=== PATIENT | male | born 1950 | race Caucasian/White ===

== ENCOUNTER 2018-10-04 10:00 | Observation (INO) | payer MEDICARE, BC ==
[2018-10-04] MEDS ORDERED: Albuterol/Ipratropium 3.0-0.5 MG/3 ML Neb Soln ONE (10:19)
[2018-10-04] MEDS ORDERED: methylPREDNISolone Sodium Succinate 40 MG/1 ML SDV IVPUSH ONE (10:19)
--- NOTE | 2018-10-04 10:37 | EDM.PDOC ---
ED HPI GENERAL MEDICAL PROBLEM - General Chief Complaint: Respiratory Problem Stated Complaint: DIFFICULTY BREATHING Time Seen by Provider: 10/04/18 10:11 Source of Information: Reports: Patient History Limitations: Reports: No Limitations - History of Present Illness INITIAL COMMENTS - FREE TEXT/NARRATIVE: Patient presents with complaints of difficulty breathing and shortness of breath. States this started last night and has progressively worsened. He has history of COPD and has had prior exacerbations in the past. Does have daily spiriva as well as combivent for rescue inhaler. He denies recent fever, chills. Denies dizziness, chest pain, headaches, abdominal pain, no blood in urine or stool, no diarrhea, nausea, or vomiting. Onset Date: 10/03/18 Duration: Getting Worse Associated Symptoms: Reports: Cough, Shortness of Breath. Denies: cough w sputum - Related Data Allergies Allergy/AdvReac Type Severity Reaction Status Date / Time [id number] Reductase Allergy Unknown Liver Verified 10/04/18 10:08 Inhibitor Problems Penicillins Allergy Rash Verified 10/04/18 10:08 Home Meds: Home Meds Albuterol/Ipratropium [Combivent Respimat] 1 puff INH Q6HR PRN 07/12/13 [History ] Tiotropium [Spiriva] 1 puff INH DAILY 07/12/13 [History] Aspirin [Low Dose Aspirin EC] 81 mg PO DAILY 01/26/14 [History] Fish Oil/Gering-3 Fatty Acids [Fish Oil] 1,000 mg PO TID 01/26/14 [History] Cinnamon Bark [Cinnamon] 1 cap PO BID 10/04/18 [History] Ipratropium/Albuterol Sulfate [Iprat-Albut 0.5-3(2.5) mg/3 ml] 3 ml IH Q4HR PRN 10/04/18 [History] Latanoprost 1 drop EYEBOTH BEDTIME 10/04/18 [History] Naproxen Sodium 220 mg PO DAILY PRN 10/04/18 [History] metFORMIN [Glucophage] 500 mg PO BIDMEALS 10/04/18 [History] Social & Family History - Living Situation & Occupation Occupation: Employed ED ROS GENERAL - Review of Systems Review Of Systems: See Below Constitutional: Reports: No Symptoms HEENT: Reports: No Symptoms Respiratory: Reports: Shortness of Breath, Cough Cardiovascular: Reports: No Symptoms Endocrine: Reports: No Symptoms GI/Abdominal: Reports: No Symptoms : Reports: No Symptoms Musculoskeletal: Reports: No Symptoms Skin: Reports: No Symptoms Neurological: Reports: No Symptoms Psychiatric: Reports: No Symptoms Hematologic/Lymphatic: Reports: No Symptoms Immunologic: Reports: No Symptoms ED EXAM, GENERAL - Physical Exam Exam: See Below Exam Limited By: No Limitations General Appearance: Alert, WD/WN, Mild Distress Eye Exam: Bilateral Eye: EOMI, Normal Inspection, PERRL Ears: Normal TMs Ear Exam: Bilateral Ear: Auricle Normal, Canal Normal, TM normal Nose: Normal Inspection, Normal Mucosa, No Blood Throat/Mouth: Normal Inspection, Normal Lips, Normal Teeth, Normal Gums, Normal Oropharynx, Normal Voice, No Airway Compromise Head: Atraumatic, Normocephalic Neck: Normal Inspection, Supple, Non-Tender, Full Range of Motion Respiratory/Chest: Rhonchi, Wheezing Cardiovascular: Normal Peripheral Pulses, Regular Rate, Rhythm, No Edema, No Gallop, No JVD, No Murmur, No Rub GI/Abdominal: Normal Bowel Sounds, Soft, Non-Tender, No Organomegaly, No Distention, No Abnormal Bruit, No Mass Back Exam: Normal Inspection, Full Range of Motion, NT Extremities: Normal Inspection, Normal Range of Motion, Non-Tender, Normal Capillary Refill, No Pedal Edema Neurological: Alert, Oriented, CN II-XII Intact, Normal Cognition, Normal Gait, Normal Reflexes, No Motor/Sensory Deficits Psychiatric: Normal Affect, Normal Mood Skin Exam: Warm, Dry, Intact, Normal Color, No Rash Lymphatic: No Adenopathy Course - Vital Signs Last Recorded V/S: Last Vital Signs Temp 36.8 C 10/04/18 12:31 Pulse 105 H 10/04/18 12:31 Resp 12 10/04/18 12:31 BP 120/80 10/04/18 12:31 Pulse Ox 92 L 10/04/18 12:31 - Orders/Labs/Meds Orders: Active Orders 24 hr Category Date Time Status EKG Documentation Completion [RC] STAT Care 10/04/18 10:19 Active Sodium Chloride 0.9% [Saline Flush] Med 10/04/18 10:19 Active 10 ml FLUSH ASDIRECTED PRN Saline Lock Insert [OM.PC] Routine Oth 10/04/18 10:19 Ordered Medication Orders Sodium Chloride (Saline Flush) 10 ml FLUSH ASDIRECTED PRN PRN Reason: Keep Vein Open Last Admin: 10/04/18 10:40 Dose: 10 ml Labs: Laboratory Tests 10/04/18 10/04/18 10/04/18 Range/Units 10:27 10:27 10:27 WBC 11.4 H (4.0-10.0) x10^3/uL RBC 5.49 (4.5-6.0) x10^6/uL Hgb 16.4 (14.0-18.0) g/dL Hct 47.6 (40.0-52.0) % MCV 86.7 (78.0-93.0) fL MCH 29.9 (26.0-32.0) pg MCHC 34.5 (32.0-36.0) g/dL RDW Coeff of Christine 14.3 (10.0-15.0) % Plt Count 182 (130-400) x10^3/uL Neut % (Auto) 78.6 (50.0-80.0) % Lymph % (Auto) 11.0 L (25.0-50.0) % [place] % (Auto) 6.9 (2.0-11.0) % Eos % (Auto) 3.3 (0.0-4.0) % Baso % (Auto) 0.2 (0.2-1.2) % PT 10.3 (10.0-12.8) SEC INR 0.9 L (2.0-3.5) Sodium 137 (136-145) mmol/L Potassium 4.8 (3.5-5.1) mmol/L Chloride 100 (98-107) mmol/L Carbon Dioxide 29 (21-32) mmol/L Anion Gap 12.8 (10-20) mmol/L BUN 25 H (7-18) mg/dL Creatinine 1.0 (0.70-1.30) mg/dL Est Cr Clr Drug Dosing 73.00 mL/min Estimated GFR (MDRD) > 60 Glucose 224 H (74-106) mg/dL Lactic Acid (0.4-2.0) mmol/L Calcium 10.2 H (8.5-10.1) mg/dL Corrected Calcium 10.28 H (8.5-10.1) mg/dL Total Bilirubin 0.8 (0.2-1.0) mg/dL AST 56 H (15-37) U/L ALT 135 H (16-63) U/L Alkaline Phosphatase 193 H (46-116) U/L Troponin I < 0.017 (<=0.056) ng/mL C-Reactive Protein 1.1 H (<=0.9) mg/dL NT-Pro-B Natriuret Pep 18 (<=125) pg/mL Total Protein 8.6 H (6.4-8.2) g/dL Albumin 3.9 (3.4-5.0) g/dL Globulin 4.7 Albumin/Globulin Ratio 0.83 // Range/Units 10:27 WBC (4.0-10.0) x10^3/uL RBC (4.5-6.0) x10^6/uL Hgb (14.0-18.0) g/dL Hct (40.0-52.0) % MCV (78.0-93.0) fL MCH (26.0-32.0) pg MCHC (32.0-36.0) g/dL RDW Coeff of Christine (10.0-15.0) % Plt Count (130-400) x10^3/uL Neut % (Auto) (50.0-80.0) % Lymph % (Auto) (25.0-50.0) % [place] % (Auto) (2.0-11.0) % Eos % (Auto) (0.0-4.0) % Baso % (Auto) (0.2-1.2) % PT (10.0-12.8) SEC INR (2.0-3.5) Sodium (136-145) mmol/L Potassium (3.5-5.1) mmol/L Chloride (98-107) mmol/L Carbon Dioxide (21-32) mmol/L Anion Gap (10-20) mmol/L BUN (7-18) mg/dL Creatinine (0.70-1.30) mg/dL Est Cr Clr Drug Dosing mL/min Estimated GFR (MDRD) Glucose (74-106) mg/dL Lactic Acid 2.0 (0.4-2.0) mmol/L Calcium (8.5-10.1) mg/dL Corrected Calcium (8.5-10.1) mg/dL Total Bilirubin (0.2-1.0) mg/dL AST (15-37) U/L ALT (16-63) U/L Alkaline Phosphatase (46-116) U/L Troponin I (<=0.056) ng/mL C-Reactive Protein (<=0.9) mg/dL NT-Pro-B Natriuret Pep (<=125) pg/mL Total Protein (6.4-8.2) g/dL Albumin (3.4-5.0) g/dL Globulin Albumin/Globulin Ratio Meds: Medications Generic Name Dose Route Start Last Admin Trade Name Freq PRN Reason Stop Dose Admin Sodium Chloride 10 ml 10/04/18 10:19 10/04/18 10:40 Saline Flush FLUSH 10 ml ASDIRECTED PRN Administration Keep Vein Open Discontinued Medications Generic Name Dose Route Start Last Admin Trade Name Freq PRN Reason Stop Dose Admin Albuterol/Ipratropium Confirm 10/04/18 10:19 10/04/18 10:25 Duoneb 3.0-0.5 Mg/3 Ml Administered 10/04/18 10:20 3 ml Dose Administration 3 ml .ROUTE .STK-MED ONE Methylprednisolone Sodium Succinate 40 mg 10/04/18 10:19 10/04/18 10:40 Solu-Medrol IVPUSH 10/04/18 10:20 40 mg ONETIME ONE Administration Departure - Departure Time of Disposition: 12:20 Disposition: Refer to Observation Condition: Fair Clinical Impression: COPD with exacerbation - Discharge Information *PRESCRIPTION DRUG MONITORING PROGRAM REVIEWED*: Not Applicable *COPY OF PRESCRIPTION DRUG MONITORING REPORT IN PATIENT NEELA: Not Applicable - Problem List & Annotations (1) COPD with exacerbation SNOMED Code(s): 118407766 Code(s): J44.1 - CHRONIC OBSTRUCTIVE PULMONARY DISEASE W (ACUTE) EXACERBATION Status: Acute Priority: Medium Current Visit: Yes - Problem List Review Problem List Initiated/Reviewed/Updated: Yes - My Orders Last 24 Hours: My Active Orders 10/04/18 10:19 EKG Documentation Completion [RC] STAT Sodium Chloride 0.9% [Saline Flush] 10 ml FLUSH ASDIRECTED PRN Saline Lock Insert [OM.PC] Routine - Assessment/Plan Last 24 Hours: My Active Orders 10/04/18 10:19 EKG Documentation Completion [RC] STAT Sodium Chloride 0.9% [Saline Flush] 10 ml FLUSH ASDIRECTED PRN Saline Lock Insert [OM.PC] Routine Assessment:: copd exacerbation Plan: Plan Admit to observation. Administer scheduled solu-medrol, duoneb, place on telemetry, supplemental oxygen. WBC's slightly elevated, no pneumonia on radiologic imaging. Recheck labwork in AM, possible discharge tomorrow. Patient is Code Level I, and remained stable under my care in the ER.
[2018-10-04] MEDS: Sodium Chloride 0.9% 10 ML Syringe FLUSH PRN (10:40)
[2018-10-04 11:11] LABS: CHLORIDE,CL 100 mmol/L (98-107); SODIUM,NA 137 mmol/L (136-145)
[2018-10-04 11:14] LABS: ANION GAP 12.8 mmol/L (10-20)
--- NOTE | 2018-10-04 11:31 | CR ---
[id number] RAD/RAD Chest PA or AP 1V EXAM: SINGLE VIEW CHEST. INDICATION: SHORTNESS OF BREATH COMPARISON: NO PREVIOUS SIMILAR EXAM IS AVAILABLE FINDINGS: There is upper lobe emphysema with crowding of the bronchovascular pattern at the lung bases. The cardiomediastinal contour is mildly prominent. IMPRESSION: AIRWAY DISEASE. Errol Simmons MD 10/04/18 [id number] Thank you for allowing us to participate in the care of your patient.
[2018-10-04] MEDS ORDERED: ALBUTEROL INH PRN (16:35)
[2018-10-04] MEDS ORDERED: IPRATROPIUM INH PRN (16:35)
[2018-10-04] MEDS ORDERED: Albuterol/Ipratropium 3.0-0.5 MG/3 ML Neb Soln INH PRN (16:35)
[2018-10-04] MEDS ORDERED: Albuterol/Ipratropium 3.0-0.5 MG/3 ML Neb Soln NEB PRN (16:38)
[2018-10-04] MEDS ORDERED: Acetaminophen 325 MG Tab PO PRN (16:38)
[2018-10-04] MEDS: methylPREDNISolone Sodium Succinate 40 MG/1 ML SDV IVPUSH SCH (17:08)
[2018-10-04] MEDS: metFORMIN 500 MG Tab PO SCH (17:08)
[2018-10-04] MEDS: Albuterol/Ipratropium 3.0-0.5 MG/3 ML Neb Soln NEB SCH ×2 (18:46→22:40)
[2018-10-04] MEDS: TIOTROPIUM INH SCH (19:32)
[2018-10-04] MEDS ORDERED: LATANOPROST 0.005% EYEBOTH SCH (20:00)
[2018-10-04] MEDS ORDERED: Azithromycin 500 MG in Sodium Chloride 0.9% 250 ML IV SCH (20:00)
[2018-10-05] MEDS: methylPREDNISolone Sodium Succinate 40 MG/1 ML SDV IVPUSH SCH ×2 (00:36→08:28)
[2018-10-05] MEDS: Sodium Chloride 0.9% 10 ML Syringe FLUSH PRN ×2 (00:40→08:28)
[2018-10-05] MEDS: Albuterol/Ipratropium 3.0-0.5 MG/3 ML Neb Soln NEB SCH ×2 (03:24→06:35)
[2018-10-05] MEDS ORDERED: Aspirin 81 MG Tab.EC PO SCH (08:00)
[2018-10-05] MEDS: TIOTROPIUM INH SCH (08:28)
[2018-10-05] MEDS: metFORMIN 500 MG Tab PO SCH (08:28)
[2018-10-05 08:46] LABS: ANION GAP 18.5 mmol/L (10-20)
--- NOTE | 2018-10-05 11:46 | PCM.DCSUM1 ---
Discharge Summary - Hospital Course Free Text/Narrative:: Pt. was admitted for COPD exacerbation yesterday. He was started on IV solu medrol and azithromycin. He states that he is feeling much improved today. He states that he has been up ambulating. Staff states that he has been spending time in the dayroom reading. Denies any significant cough. No fever or chills. No chest pain or shortness of breath. Denies any nausea or vomiting. Diagnosis: Stroke: No - Discharge Data Discharge Date: 10/05/18 Discharge Disposition: Home, Self-Care 01 Condition: Good - Discharge Diagnosis/Problem(s) (1) COPD with exacerbation SNOMED Code(s): 534479630 ICD Code: J44.1 - CHRONIC OBSTRUCTIVE PULMONARY DISEASE W (ACUTE) EXACERBATION Status: Acute Priority: Medium - Patient Instructions Diet: Diabetic Diet - Discharge Plan *PRESCRIPTION DRUG MONITORING PROGRAM REVIEWED*: Not Applicable *COPY OF PRESCRIPTION DRUG MONITORING REPORT IN PATIENT NEELA: Not Applicable Home Medications: Home Meds Albuterol/Ipratropium [Combivent Respimat] 1 puff INH Q6HR PRN 07/12/13 [History ] Tiotropium [Spiriva Handihaler] 1 puff INH DAILY 07/12/13 [History] Aspirin [Low Dose Aspirin EC] 81 mg PO DAILY 01/26/14 [History] Fish Oil/Dragoon-3 Fatty Acids [Fish Oil] 1,000 mg PO TID 01/26/14 [History] Cinnamon Bark [Cinnamon] 1 cap PO BID 10/04/18 [History] Ipratropium/Albuterol Sulfate [Iprat-Albut 0.5-3(2.5) mg/3 ml] 3 ml IH Q4HR PRN 10/04/18 [History] Latanoprost 1 drop EYEBOTH BEDTIME 10/04/18 [History] Naproxen Sodium 220 mg PO DAILY PRN 10/04/18 [History] metFORMIN [Glucophage] 500 mg PO BIDMEALS 10/04/18 [History] Patient Handouts: Chronic Obstructive Pulmonary Disease Exacerbation, Easy-to- Read Forms: ED Department Discharge - Discharge Summary/Plan Comment DC Time >30 min.: Yes Discharge Summary/Plan Comment: Pt. will be discharged today. Continue azithromycin 250mg once daily. Prednisone 40mg once daily. Follow-up in clinic 10-14 days for recheck. - General Info Date of Service: 10/05/18 Functional Status: Reports: Pain Controlled - Review of Systems General: Reports: No Symptoms HEENT: Reports: No Symptoms Pulmonary: Reports: Other (see HPI) Cardiovascular: Reports: No Symptoms Gastrointestinal: Reports: No Symptoms Genitourinary: Reports: No Symptoms Musculoskeletal: Reports: No Symptoms Skin: Reports: No Symptoms Neurological: Reports: No Symptoms Psychiatric: Reports: No Symptoms - Patient Data Vitals - Most Recent: Last Vital Signs Temp 36.9 C 10/05/18 10:00 Pulse 105 H 10/05/18 10:00 Resp 18 10/05/18 10:00 BP 112/69 10/05/18 10:00 Pulse Ox 92 L 10/05/18 10:00 Weight - Most Recent: 74.843 kg I&O - Last 24 hours: Intake & Output 10/04/18 10/05/18 10/05/18 22:59 06:59 14:59 Intake Total 1148 900 540 Output Total 900 750 Balance 248 150 540 Lab Results - Last 24 hrs: Laboratory Results - last 24 hr 10/04/18 10/05/18 10/05/18 Range/Units 21:40 06:48 08:08 WBC 15.3 H (4.0-10.0) x10^3/uL RBC 5.03 (4.5-6.0) x10^6/uL Hgb 14.7 D (14.0-18.0) g/dL Hct 43.6 (40.0-52.0) % MCV 86.7 (78.0-93.0) fL MCH 29.2 (26.0-32.0) pg MCHC 33.7 (32.0-36.0) g/dL RDW Coeff of Christine 14.3 (10.0-15.0) % Plt Count 215 (130-400) x10^3/uL Neut % (Auto) 88.2 H (50.0-80.0) % Lymph % (Auto) 7.7 L (25.0-50.0) % [place] % (Auto) 3.9 (2.0-11.0) % Eos % (Auto) 0.1 (0.0-4.0) % Baso % (Auto) 0.1 L (0.2-1.2) % Sodium (136-145) mmol/L Potassium (3.5-5.1) mmol/L Chloride (98-107) mmol/L Carbon Dioxide (21-32) mmol/L Anion Gap (10-20) mmol/L BUN (7-18) mg/dL Creatinine (0.70-1.30) mg/dL Est Cr Clr Drug Dosing mL/min Estimated GFR (MDRD) Glucose (74-106) mg/dL POC Glucose 353 H 256 H (74-106) mg/dL Calcium (8.5-10.1) mg/dL Magnesium (1.8-2.4) mg/dL 10/05/18 Range/Units 08:08 WBC (4.0-10.0) x10^3/uL RBC (4.5-6.0) x10^6/uL Hgb (14.0-18.0) g/dL Hct (40.0-52.0) % MCV (78.0-93.0) fL MCH (26.0-32.0) pg MCHC (32.0-36.0) g/dL RDW Coeff of Christine (10.0-15.0) % Plt Count (130-400) x10^3/uL Neut % (Auto) (50.0-80.0) % Lymph % (Auto) (25.0-50.0) % [place] % (Auto) (2.0-11.0) % Eos % (Auto) (0.0-4.0) % Baso % (Auto) (0.2-1.2) % Sodium 135 L (136-145) mmol/L Potassium 4.5 (3.5-5.1) mmol/L Chloride 99 (98-107) mmol/L Carbon Dioxide 22 (21-32) mmol/L Anion Gap 18.5 (10-20) mmol/L BUN 30 H (7-18) mg/dL Creatinine 1.4 H (0.70-1.30) mg/dL Est Cr Clr Drug Dosing 52.14 mL/min Estimated GFR (MDRD) 50 Glucose 313 H (74-106) mg/dL POC Glucose (74-106) mg/dL Calcium 9.8 (8.5-10.1) mg/dL Magnesium 1.9 (1.8-2.4) mg/dL GRETA Results - Last 24 hrs: Microbiology 10/04/18 10:59 Influenza Type A Antigen Screen - Final Nasopharyngeal Swab NEGATIVE INFLUENZA A VIRUS AG Influenza Type B Antigen Screen - Final NEGATIVE INFLUENZA B VIRUS AG Med Orders - Current: Current Medications Discontinued Medications Acetaminophen (Tylenol) 650 mg PO Q4H PRN PRN Reason: Pain (Mild 1-3)/fever Albuterol/Ipratropium (Duoneb 3.0-0.5 Mg/3 Ml) Confirm Administered Dose 3 ml .ROUTE .STK-MED ONE Stop: 10/04/18 10:20 Last Admin: 10/04/18 10:25 Dose: 3 ml Albuterol/Ipratropium (Combivent Respimat) 0 gm INH Q6HR PRN PRN Reason: Shortness of Breath Albuterol/Ipratropium (Duoneb 3.0-0.5 Mg/3 Ml) 3 ml NEB Q4H PRN PRN Reason: dyspnea/wheezing Albuterol/Ipratropium (Duoneb 3.0-0.5 Mg/3 Ml) 3 ml NEB Q4HRRT [facility] Last Admin: 10/05/18 06:35 Dose: 3 ml Aspirin (Halfprin) 81 mg PO DAILY [facility] Last Admin: 10/05/18 08:28 Dose: 81 mg Azithromycin 500 mg/ Sodium (Chloride) 250 mls @ 250 mls/hr IV Q24H [facility] Last Admin: 10/04/18 21:33 Dose: 250 mls/hr Latanoprost (Xalatan 0.005% Ophth Soln) 0 ml EYEBOTH BEDTIME [facility] Last Admin: 10/04/18 20:19 Dose: 1 drop Metformin HCl (Glucophage) 500 mg PO BIDMEALS [facility] Last Admin: 10/05/18 08:28 Dose: 500 mg Methylprednisolone Sodium Succinate (Solu-Medrol) 40 mg IVPUSH ONETIME ONE Stop: 10/04/18 10:20 Last Admin: 10/04/18 10:40 Dose: 40 mg Methylprednisolone Sodium Succinate (Solu-Medrol) 40 mg IVPUSH Q8H [facility] Last Admin: 10/05/18 08:28 Dose: 40 mg Own Med ( Tiotropium [Spiriva Handihaler] 1 Puff) 1 puff INH DAILY [facility] Last Admin: 10/05/18 08:28 Dose: 1 puff Sodium Chloride (Saline Flush) 10 ml FLUSH ASDIRECTED PRN PRN Reason: Keep Vein Open Last Admin: 10/05/18 08:28 Dose: 10 ml - Exam General: Reports: Alert, Oriented HEENT: Reports: Pupils Equal, Pupils Reactive, EOMI, Mucous Membr. Moist/[place]rich Neck: Reports: Supple Lungs: Reports: Crackles, Rhonchi Cardiovascular: Reports: Regular Rate, Regular Rhythm GI/Abdominal Exam: Normal Bowel Sounds, Soft, Non-Tender, No Organomegaly, No Distention, No Abnormal Bruit, No Mass, Pelvis Stable (Male) Exam: Deferred Rectal (Males) Exam: Deferred Back Exam: Reports: Normal Inspection, Full Range of Motion Extremities: Normal Inspection, Normal Range of Motion, Non-Tender, No Pedal Edema, Normal Capillary Refill Skin: Reports: Warm, Dry, Intact Neurological: Reports: No New Focal Deficit Psy/Mental Status: Reports: Alert, Normal Affect, Normal Mood
== END 2018-10-05 11:15 | disposition home or self-care (01) ==
LOC: VM.ED 10:00 → VM.MS 12:03
PROVIDERS: ADMIT Nurse Practitioner Family; ATTEND Nurse Practitioner Family
DX: J44.1 Chronic obstructive pulmonary disease with (acute) exacerbation (principal); Z88.8 Allergy status to other drugs, medicaments and biological substances; Z88.0 Allergy status to penicillin; Z79.82 Long term (current) use of aspirin; Z79.84 Long term (current) use of oral hypoglycemic drugs; Z79.899 Other long term (current) drug therapy
CPT/HCPCS: 36415; 71045; 80048; 80053; 82962; 83605; 83735; 83880; 84484; 85025; 85610; 86140; 87804; 87804-59; 93005; 94640; 96365; 96374; 96375; 96376; 99217; 99219; 99284-GF; 99285-25; A9270-GY; G0378; J0456; J2920; J7050; J7620-GY

== ENCOUNTER 2019-03-04 01:39 | Emergency (ER) | payer MEDICARE, BC ==
[2019-03-04] MEDS: Ondansetron 4 MG/2 ML SDV ONE (01:55)
[2019-03-04] MEDS: Ketorolac 30 MG/ML SDV ONE (01:55)
[2019-03-04] MEDS: Sodium Chloride 0.9% 500 ML IV ONE (02:10)
--- NOTE | 2019-03-04 02:14 | EDM.PDOC ---
ED HPI GENERAL MEDICAL PROBLEM - General Chief Complaint: Genitourinary Problem Stated Complaint: flank pain Time Seen by Provider: 03/04/19 01:55 Source of Information: Reports: Patient History Limitations: Reports: No Limitations - History of Present Illness INITIAL COMMENTS - FREE TEXT/NARRATIVE: 68-year-old white male that presents to the ER tonight with sudden onset of right flank pain that started at 9 PM. Patient states that he got up to use restroom and noticed he had blood in his urine. Then the pain went away and reoccurred approximately 30 minutes ago with nausea but no vomiting at that time pain was about a 5 or 6 out of 10. Patient came to the emergency room at that time had 1 episode of vomiting with one episode of hematuria again. Patient states he hadn't same signs and symptoms approximate 6 years ago with a kidney stone that he was able to pass he did not see a urologist and was diagnosed with CAT scan and he has not had one since. Patient denies any other complaints Symptoms at This Time Says He Has Been Feeling Well All Day till Now He Has No Known Renal Issues Does Have a History of Ulcerative Colitis Which Has a Colostomy Bag. 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, Aspirin, NSAIDS Right Flank Pain Score (Numeric/FACES): 5 - Related Data Allergies Allergy/AdvReac Type Severity Reaction Status Date / Time Xxpucnt-[id number]-Xaz Reductase Allergy Unknown Liver Verified 03/04/19 01:40 Inhibitor Problems Penicillins Allergy Rash Verified 03/04/19 01:40 Home Meds: Home Meds Albuterol/Ipratropium [Combivent Respimat] 1 puff INH Q6HR PRN 07/12/13 [History ] Tiotropium [Spiriva Handihaler] 1 puff INH DAILY 07/12/13 [History] Aspirin [Low Dose Aspirin EC] 81 mg PO DAILY 01/26/14 [History] Cinnamon Bark [Cinnamon] 1 cap PO BID 10/04/18 [History] Ipratropium/Albuterol Sulfate [Iprat-Albut 0.5-3(2.5) mg/3 ml] 3 ml IH Q4HR PRN 10/04/18 [History] Latanoprost 1 drop EYEBOTH BEDTIME 10/04/18 [History] Naproxen Sodium 220 mg PO DAILY PRN 10/04/18 [History] metFORMIN [Glucophage] 500 mg PO BIDMEALS 10/04/18 [History] Rosuvastatin Calcium 1 tab PO BEDTIME 03/04/19 [History] Past Medical History HEENT History: Reports: Allergic Rhinitis Cardiovascular History: Reports: High Cholesterol Respiratory History: Reports: COPD, SOB Gastrointestinal History: Reports: Inflammatory Bowel Disease Endocrine/Metabolic History: Reports: Diabetes, Type II, Other (See Below) Other Endocrine/Metabolic History: LU: nonalcoholic steatohepatitis Dermatologic History: Reports: Psoriasis - Infectious Disease History Infectious Disease History: Reports: Chicken Pox - Past Surgical History GI Surgical History: Reports: Other (See Below) Other GI Surgeries/Procedures: ileostomy Social & Family History - Family History Family Medical History: Noncontributory - Tobacco Use Smoking Status *Q: Unknown Ever Smoked - Caffeine Use Caffeine Use: Reports: Coffee, Soda - Living Situation & Occupation Occupation: Employed ED ROS GENERAL - Review of Systems Review Of Systems: See Below Constitutional: Reports: No Symptoms HEENT: Reports: No Symptoms Respiratory: Reports: No Symptoms Cardiovascular: Reports: No Symptoms Endocrine: Reports: No Symptoms GI/Abdominal: Reports: Nausea, Vomiting. Denies: Abdominal Pain, Black Stool, Bloody Stool, Constipation, Decreased Appetite, Hematemesis : Reports: Flank Pain, Hematuria. Denies: Dysuria, Frequency, Urgency, Urinary Retention Musculoskeletal: Reports: No Symptoms Skin: Reports: No Symptoms Neurological: Reports: No Symptoms Psychiatric: Reports: No Symptoms Hematologic/Lymphatic: Reports: No Symptoms ED EXAM, RENAL/ - Physical Exam Exam: See Below Exam Limited By: No Limitations General Appearance: Alert, WD/WN, Other (Patient noted be in mild discomfort) Eye Exam: Bilateral Eye: EOMI, PERRL Nose: Normal Inspection, Normal Mucosa Throat/Mouth: Normal Inspection, Normal Lips, Normal Teeth, Normal Gums, Normal Oropharynx, Normal Voice, No Airway Compromise Respiratory/Chest: No Respiratory Distress, Lungs Clear, Normal Breath Sounds, No Accessory Muscle Use, Chest Non-Tender Cardiovascular: Normal Peripheral Pulses, Regular Rate, Rhythm, No Edema, No Gallop, No JVD GI/Abdominal: Normal Bowel Sounds, Soft, Non-Tender, No Organomegaly, No Distention. No: Guarding, Rigid, Rebound, Tender Back Exam: Normal Inspection, Full Range of Motion. No: CVA Tenderness (L), CVA Tenderness (R) Extremities: Normal Inspection, Normal Range of Motion, Non-Tender, No Pedal Edema Neurological: Alert, Oriented, CN II-XII Intact, Normal Cognition, Normal Gait, Normal Reflexes, No Motor/Sensory Deficits Psychiatric: Normal Affect, Normal Mood Skin Exam: Warm, Dry, Intact, Normal Color, No Rash Course - Vital Signs Text/Narrative:: Urinalysis was checked patient was given 30 mg Toradol IV along with 4 Zofran IV states pain is much better now approximately 2 out of 10 patient given 1 bag of normal saline 500 bolused him 125 an hour Patient at this time is okay with treatment conservatively checking UA we will order labs in the morning along with possible CT scan/ultrasound with primary care provider Rechecked patient states pain is very minimal one out of 10 states feels much better and wants to go home willing to return if anything gets worse Discharged with Lortab one by mouth every 4-6 hours number of 7 Zofran 4 mg 1 by mouth every 4-6 hours number of 30 Last Recorded V/S: Last Vital Signs Temp 37.1 C 03/04/19 06:23 Pulse 74 03/04/19 06:23 Resp 16 03/04/19 06:23 BP 129/72 03/04/19 06:23 Pulse Ox 96 03/04/19 06:23 - Orders/Labs/Meds Orders: Active Orders 24 hr Category Date Time Status HYDROmorphone [Dilaudid] Med 03/04/19 02:54 Active 0.5 - 1 mg IVPUSH Q2H PRN Ondansetron [Zofran] Med 03/04/19 02:55 Active 4 mg IVPUSH ONETIME PRN Sodium Chloride 0.9% [Normal Saline] 1,000 ml Med 03/04/19 06:00 Active IV ASDIRECTED Medication Orders Hydromorphone HCl (Dilaudid) 0.5 - 1 mg IVPUSH Q2H PRN PRN Reason: Pain Last Admin: 03/04/19 03:02 Dose: 0.5 mg Sodium Chloride (Normal Saline) 1,000 mls @ 125 mls/hr IV ASDIRECTED MYRA Last Admin: 03/04/19 05:48 Dose: 125 mls/hr Ondansetron HCl (Zofran) 4 mg IVPUSH ONETIME PRN PRN Reason: Nausea Labs: Laboratory Tests 03/04/19 03/04/19 03/04/19 Range/Units 02:25 06:20 06:20 WBC 10.5 H (4.0-10.0) x10^3/uL RBC 4.69 (4.5-6.0) x10^6/uL Hgb 14.1 (14.0-18.0) g/dL Hct 40.6 (40.0-52.0) % MCV 86.6 (78.0-93.0) fL MCH 30.1 (26.0-32.0) pg MCHC 34.7 (32.0-36.0) g/dL RDW Coeff of Christine 13.3 (10.0-15.0) % Plt Count 160 (130-400) x10^3/uL Neut % (Auto) 81.6 H (50.0-80.0) % Lymph % (Auto) 11.4 L (25.0-50.0) % [place] % (Auto) 5.5 (2.0-11.0) % Eos % (Auto) 1.3 (0.0-4.0) % Baso % (Auto) 0.2 (0.2-1.2) % Sodium 138 (136-145) mmol/L Potassium 4.7 (3.5-5.1) mmol/L Chloride 105 (98-107) mmol/L Carbon Dioxide 24 (21-32) mmol/L Anion Gap 13.7 (10-20) mmol/L BUN 24 H (7-18) mg/dL Creatinine 1.1 (0.70-1.30) mg/dL Est Cr Clr Drug Dosing 65.98 mL/min Estimated GFR (MDRD) > 60 Glucose 130 H (74-106) mg/dL Calcium 8.4 L (8.5-10.1) mg/dL Urine Color Red H (YELLOW) POC Urine Appearance Other H (CLEAR) POC Urine pH 6.0 (5.0-8.0) Ur Specific [place] 1.020 (1.005-1.030) POC Urine Protein 100 H (NEGATIVE) POC Ur Glucose (UA) Negative (NEGATIVE) POC Urine Ketones Negative (NEGATIVE) POC Ur Occult Blood Large H (NEGATIVE) POC Urine Nitrite Negative (NEGATIVE) POC Urine Bilirubin Negative (NEGATIVE) POC Urine Urobilinogen 0.2 (0.2) POC U Leukocyte Esteras Negative (NEGATIVE) Meds: Medications Generic Name Dose Route Start Last Admin Trade Name Freq PRN Reason Stop Dose Admin Hydromorphone HCl 0.5 - 1 mg 03/04/19 02:54 03/04/19 03:02 Dilaudid IVPUSH 0.5 mg Q2H PRN Administration Pain Sodium Chloride 1,000 mls @ 125 mls/hr 03/04/19 06:00 03/04/19 05:48 Normal Saline IV 125 mls/hr ASDIRECTED MYRA Administration Ondansetron HCl 4 mg 03/04/19 02:55 Zofran IVPUSH ONETIME PRN Nausea Discontinued Medications Generic Name Dose Route Start Last Admin Trade Name Freq PRN Reason Stop Dose Admin Sodium Chloride 500 mls @ 500 mls/hr 03/04/19 02:00 03/04/19 02:10 Normal Saline IV 03/04/19 02:59 500 mls/hr ONETIME ONE Administration Ketorolac Tromethamine Confirm 03/04/19 01:57 03/04/19 01:55 Toradol Administered 03/04/19 01:58 30 mg Dose Administration 30 mg .ROUTE .STK-MED ONE Ondansetron HCl Confirm 03/04/19 01:56 03/04/19 01:55 Zofran Administered 03/04/19 01:57 4 mg Dose Administration 4 mg .ROUTE .STK-MED ONE Tamsulosin HCl 0.4 mg 03/04/19 02:28 03/04/19 02:33 Flomax PO 03/04/19 02:29 0.4 mg ONETIME ONE Administration Departure - Departure Time of Disposition: 06:45 Disposition: Home, Self-Care 01 Condition: Good Clinical Impression: Renal colic on right side, Hematuria - Discharge Information *PRESCRIPTION DRUG MONITORING PROGRAM REVIEWED*: No *COPY OF PRESCRIPTION DRUG MONITORING REPORT IN PATIENT NEELA: No Instructions: Kidney Stones Referrals: PCP,None [Primary Care Provider] - Forms: ED Department Discharge Additional Instructions: Take medications as directed return to the emergency room if anything gets worse or changes follow up with your primary care provider in 24-48 hours - Problem List & Annotations (1) Renal colic on right side SNOMED Code(s): 2332335 Code(s): N23 - UNSPECIFIED RENAL COLIC Status: Acute Current Visit: Yes (2) Hematuria SNOMED Code(s): 02295501 Code(s): R31.9 - HEMATURIA, UNSPECIFIED Status: Acute Current Visit: Yes - My Orders Last 24 Hours: My Active Orders 03/04/19 02:54 HYDROmorphone [Dilaudid] 0.5 - 1 mg IVPUSH Q2H PRN 03/04/19 02:55 Ondansetron [Zofran] 4 mg IVPUSH ONETIME PRN 03/04/19 06:00 Sodium Chloride 0.9% [Normal Saline] 1,000 ml IV ASDIRECTED - Assessment/Plan Last 24 Hours: My Active Orders 03/04/19 02:54 HYDROmorphone [Dilaudid] 0.5 - 1 mg IVPUSH Q2H PRN 03/04/19 02:55 Ondansetron [Zofran] 4 mg IVPUSH ONETIME PRN 03/04/19 06:00 Sodium Chloride 0.9% [Normal Saline] 1,000 ml IV ASDIRECTED
[2019-03-04] MEDS: Tamsulosin 0.4 MG Cap.ER PO ONE (02:33)
[2019-03-04] MEDS ORDERED: Ondansetron 4 MG/2 ML SDV IVPUSH PRN (02:55)
[2019-03-04] MEDS: HYDROmorphone 1 MG/ML Syringe IVPUSH PRN (03:02)
[2019-03-04] MEDS: Sodium Chloride 0.9% 1,000 ML IV SCH (05:48)
[2019-03-04 06:41] LABS: ANION GAP 13.7 mmol/L (10-20); CHLORIDE,CL 105 mmol/L (98-107); SODIUM,NA 138 mmol/L (136-145)
== END 2019-03-04 07:15 | disposition home or self-care (01) ==
LOC: VM.ED 01:39
DX: N23 Unspecified renal colic (principal); R31.9 Hematuria, unspecified; E78.00 Pure hypercholesterolemia, unspecified; E11.9 Type 2 diabetes mellitus without complications; J44.9 Chronic obstructive pulmonary disease, unspecified; Z88.0 Allergy status to penicillin; Z88.8 Allergy status to other drugs, medicaments and biological substances; Z79.82 Long term (current) use of aspirin; Z79.84 Long term (current) use of oral hypoglycemic drugs; Z79.899 Other long term (current) drug therapy
CPT/HCPCS: 36415; 80048; 81002; 85025; 96361; 96374; 96375; 99284-25; A9270-GY; J1170; J1885; J2405; J7030; J7040

== ENCOUNTER 2019-12-20 09:43 | Emergency (ER) | payer MEDICARE, BC ==
--- NOTE | 2019-12-20 10:07 | EDM.PDOC ---
ED HPI GENERAL MEDICAL PROBLEM - General Chief Complaint: Laceration Stated Complaint: cut on arm Time Seen by Provider: 12/20/19 09:43 Source of Information: Reports: Patient History Limitations: Reports: No Limitations - History of Present Illness INITIAL COMMENTS - FREE TEXT/NARRATIVE: Patient presents to ER with a laceration to his left arm. Was trimming trees and slipped with the knife. Has good range of motion with his wrist and fingers. Tdap status current. 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) - Related Data Allergies Allergy/AdvReac Type Severity Reaction Status Date / Time azathioprine Allergy Confusion Verified 12/20/19 09:56 Penicillins Allergy Rash Verified 12/20/19 09:56 Eyhaczz-Gth-Hck Reductase AdvReac Unknown Liver Verified 12/20/19 09:56 Inhibitor Problems Home Meds: Home Meds Albuterol/Ipratropium [Combivent Respimat] 1 puff INH Q6HR PRN 07/12/13 [History] Tiotropium [Spiriva Handihaler] 18 mcg INH DAILY 07/12/13 [History] Aspirin [Low Dose Aspirin EC] 81 mg PO DAILY 01/26/14 [History] Cinnamon Bark [Cinnamon] 500 mg PO BID 10/04/18 [History] Latanoprost 1 drop EYEBOTH BEDTIME 10/04/18 [History] Naproxen Sodium 220 mg PO DAILY PRN 10/04/18 [History] metFORMIN [Glucophage] 500 mg PO BIDMEALS 10/04/18 [History] Rosuvastatin Calcium 10 mg PO BEDTIME 03/04/19 [History] Furosemide [Lasix] 20 mg PO DAILY 06/02/19 [History] Past Medical History HEENT History: Reports: Allergic Rhinitis Cardiovascular History: Reports: High Cholesterol Respiratory History: Reports: COPD, SOB Gastrointestinal History: Reports: Inflammatory Bowel Disease Endocrine/Metabolic History: Reports: Diabetes, Type II, Other (See Below) Other Endocrine/Metabolic History: LU: nonalcoholic steatohepatitis Dermatologic History: Reports: Psoriasis - Infectious Disease History Infectious Disease History: Reports: Chicken Pox - Past Surgical History GI Surgical History: Reports: Other (See Below) Other GI Surgeries/Procedures: ileostomy Social & Family History - Family History Family Medical History: Noncontributory - Tobacco Use Tobacco Use Within Last Twelve Months: Snuff/Dip - Caffeine Use Caffeine Use: Reports: Coffee, Soda - Living Situation & Occupation Occupation: Employed ED ROS GENERAL - Review of Systems Review Of Systems: Comprehensive ROS is negative, except as noted in HPI. ED EXAM, SKIN/RASH Exam: See Below Exam Limited By: No Limitations General Appearance: Alert, WD/WN, No Apparent Distress Extremities: Normal Range of Motion, Normal Capillary Refill Neurological: Alert, Oriented Skin: Warm, Normal Color, Wound/Incision Location, Skin: Upper Extremity, Left Characteristics: Linear ED SKIN PROCEDURES - Laceration/Wound Repair Left Arm Appearance: Subcutaneous Distal NVT: Neuro & Vascular Intact Anesthetic Type: Local Local Anesthesia - Lidocaine (Xylocaine): 1% Plain Local Anesthetic Volume: 4cc Skin Prep: Chlorhexidine (Hibiciens), Saline Exploration/Debridement/Repair: Wound Explored, In a Bloodless Field, Explored to Base Closed with: Sutures Lac/Wound length In cm: 3 Suture Size: 4-0 # of Sutures: 7 Suture Type: Nylon, Interrupted, Simple Sterile Dressing Applied: Nurse Tetanus Status Addressed: Yes Complications: No Course - Orders/Labs/Meds Meds: Medications Discontinued Medications Generic Name Dose Route Start Last Admin Trade Name Nona PRN Reason Stop Dose Admin Lidocaine HCl 5 ml 12/20/19 09:46 Xylocaine-Mpf 1% INJECT 12/20/19 09:47 ONETIME ONE Departure - Departure Time of Disposition: 10:05 Disposition: Home, Self-Care 01 Condition: Good Clinical Impression: Broken skin Laceration of arm Qualifiers: Encounter type: initial encounter Laterality: left Qualified Code(s): S41.112A - Laceration without foreign body of left upper arm, initial encounter - Discharge Information *PRESCRIPTION DRUG MONITORING PROGRAM REVIEWED*: No *COPY OF PRESCRIPTION DRUG MONITORING REPORT IN PATIENT NEELA: No Instructions: Sutured Wound Care Referrals: Nery Cornelius DO [Primary Care Provider] - Forms: ED Department Discharge Additional Instructions: 1. Keep wound clean and dry 2. Triple antibiotic and bandage for 3 days and then as needed 3. Monitor for increased redness, drainage or pain. Notify provider if occurs 4. Sutures out in 10 days 5. Follow up if any concerns or questions.
== END 2019-12-20 10:15 | disposition home or self-care (01) ==
LOC: VM.ED 09:43
DX: S41.112A Laceration without foreign body of left upper arm, initial encounter (principal); J44.9 Chronic obstructive pulmonary disease, unspecified; E78.00 Pure hypercholesterolemia, unspecified; E11.9 Type 2 diabetes mellitus without complications; Z88.1 Allergy status to other antibiotic agents; Z88.0 Allergy status to penicillin; Z88.8 Allergy status to other drugs, medicaments and biological substances; Z79.82 Long term (current) use of aspirin; Z79.84 Long term (current) use of oral hypoglycemic drugs; Z79.899 Other long term (current) drug therapy; W26.0XXA Contact with knife, initial encounter
CPT/HCPCS: 12002; 99282; 99283-GF; J2001

== ENCOUNTER 2020-01-16 11:28 | Emergency (ER) | payer MEDICARE, BC ==
--- NOTE | 2020-01-16 11:41 | EDM.PDOC ---
ED HPI GENERAL MEDICAL PROBLEM - General Chief Complaint: Upper Extremity Injury/Pain Stated Complaint: RT ARM Time Seen by Provider: 01/16/20 11:35 Source of Information: Reports: Patient History Limitations: Reports: No Limitations - History of Present Illness INITIAL COMMENTS - FREE TEXT/NARRATIVE: Patient presents to ER with concerns of right arm swelling. Had a melanoma e xcised on Saturday at the [facility]. Incision was looking good, oozing small amount of blood. Last evening he noted more swelling and bruising in the right arm. He denies any pain. Has not noted any other drainage from the wound other than blood. No increased warmth or redness per patient. This am, states bruising is now down to his hand. Did ice last evening and did not feel it helped. [facility]. Onset: Gradual Duration: Hour(s):, Getting Worse Location: Reports: Upper Extremity, Right Quality: Reports: Ache Severity: Mild Associated Symptoms: Reports: No Other Symptoms - Related Data Allergies Allergy/AdvReac Type Severity Reaction Status Date / Time azathioprine Allergy Confusion Verified 01/16/20 11:39 Penicillins Allergy Rash Verified 01/16/20 11:39 Chybuwo-Laz-Aoo Reductase AdvReac Unknown Liver Verified 01/16/20 11:39 Inhibitor Problems Home Meds: Home Meds Albuterol/Ipratropium [Combivent Respimat] 1 puff INH Q6HR PRN 07/12/13 [History] Tiotropium [Spiriva Handihaler] 18 mcg INH DAILY 07/12/13 [History] Aspirin [Low Dose Aspirin EC] 81 mg PO DAILY 01/26/14 [History] Cinnamon Bark [Cinnamon] 500 mg PO BID 10/04/18 [History] Latanoprost 1 drop EYEBOTH BEDTIME 10/04/18 [History] Naproxen Sodium 220 mg PO DAILY PRN 10/04/18 [History] metFORMIN [Glucophage] 500 mg PO BIDMEALS 10/04/18 [History] Rosuvastatin Calcium 10 mg PO BEDTIME 03/04/19 [History] Past Medical History HEENT History: Reports: Allergic Rhinitis Cardiovascular History: Reports: High Cholesterol Respiratory History: Reports: COPD, SOB Gastrointestinal History: Reports: Inflammatory Bowel Disease Endocrine/Metabolic History: Reports: Diabetes, Type II, Other (See Below) Other Endocrine/Metabolic History: LU: nonalcoholic steatohepatitis Dermatologic History: Reports: Psoriasis - Infectious Disease History Infectious Disease History: Reports: Chicken Pox - Past Surgical History GI Surgical History: Reports: Other (See Below) Other GI Surgeries/Procedures: ileostomy Social & Family History - Family History Family Medical History: Noncontributory - Tobacco Use Smoking Status *Q: Unknown Ever Smoked - Caffeine Use Caffeine Use: Reports: Coffee, Soda - Living Situation & Occupation Occupation: Employed Review of Systems - Review of Systems Review Of Systems: See Below Constitutional: Denies: Chills, Diaphoresis, Fever, Weakness Eyes: Reports: No Symptoms Ears: Reports: No Symptoms Nose: Reports: No Symptoms Mouth/Throat: Reports: No Symptoms Respiratory: Reports: No Symptoms Cardiovascular: Reports: No Symptoms GI/Abdominal: Reports: No Symptoms Musculoskeletal: Reports: Arm Pain, Other (arm swelling) Skin: Reports: Bruising, Other (swelling) Neurological: Reports: No Symptoms ED EXAM, GENERAL - Physical Exam Exam: See Below Exam Limited By: No Limitations General Appearance: Alert, WD/WN, No Apparent Distress Head: Normocephalic Neck: Normal Inspection, Supple, Non-Tender Respiratory/Chest: No Respiratory Distress, Lungs Clear, Normal Breath Sounds Cardiovascular: Regular Rate, Rhythm Extremities: Other (patient has considerable swelling to right forearm. Incision is intact, well approximated, oozing blood. No redness noted. No warmth. Considerable bruising noted to forearm.) Neurological: Alert, Oriented Skin Exam: Ecchymosis, Wound/Incision Course - Vital Signs Last Recorded V/S: Last Vital Signs Temp 98.3 F 01/16/20 11:33 Pulse 80 01/16/20 11:33 Resp 16 01/16/20 11:33 BP 123/75 01/16/20 11:33 Pulse Ox 97 01/16/20 11:33 - Re-Assessments/Exams Free Text/Narrative Re-Assessment/Exam: 01/16/[address] [facility] physician about status and determine if any further needed to be done for arm other than compression. Did then wrap the arm with michelle bandage. Advised to rest arm and elevate. Ice the area. Ibuprofen for pain and swelling. Watch arm closely for any redness, warmth or change in drainage from incision. Departure - Departure Time of Disposition: 11:52 Disposition: Home, Self-Care 01 Condition: Good Clinical Impression: Hematoma following procedure - Discharge Information *PRESCRIPTION DRUG MONITORING PROGRAM REVIEWED*: No *COPY OF PRESCRIPTION DRUG MONITORING REPORT IN PATIENT NEELA: No Referrals: Nery Cornelius DO [Primary Care Provider] - Forms: ED Department Discharge Additional Instructions: 1. Rest 2. Elevate right arm on pillows 3. Ice every 2 hours or so today, may switch to heat tomorrow 4. Ibuprofen as needed for discomfort 5. Check wound periodically through day 6. Watch for changes in drainage, redness, fevers or increased pain [facility]. [facility] on [facility] and arm. Sepsis Event Note (ED) - Focused Exam Vital Signs: Vital Signs Temp Pulse Resp BP Pulse Ox 01/16/20 11:33 98.3 F 80 16 123/75 97
== END 2020-01-16 11:58 | disposition home or self-care (01) ==
LOC: VM.ED 11:28
DX: M96.841 Postprocedural hematoma of a musculoskeletal structure following other procedure (principal); J44.9 Chronic obstructive pulmonary disease, unspecified; E78.00 Pure hypercholesterolemia, unspecified; E11.9 Type 2 diabetes mellitus without complications; Z88.8 Allergy status to other drugs, medicaments and biological substances; Z88.0 Allergy status to penicillin; Z79.82 Long term (current) use of aspirin; Z79.84 Long term (current) use of oral hypoglycemic drugs; Z79.899 Other long term (current) drug therapy
CPT/HCPCS: 99283; 99283-GF

== ENCOUNTER 2020-01-23 18:12 | Inpatient (IN) | payer MEDICARE, BC ==
[2020-01-23] MEDS ORDERED: Sodium Chloride 0.9% 10 ML Syringe FLUSH PRN (18:36)
[2020-01-23] MEDS ORDERED: cefTRIAXone 1 GM Vial IVPUSH ONE (18:37)
[2020-01-23] MEDS ORDERED: Sodium Chloride 0.9% 1,000 ML IV ONE (18:37)
[2020-01-23] MEDS ORDERED: Acetaminophen 500 MG Tab PO ONE (18:38)
[2020-01-23] MEDS ORDERED: Albuterol/Ipratropium 3.0-0.5 MG/3 ML Neb Soln NEB ONE (18:39)
[2020-01-23] MEDS ORDERED: methylPREDNISolone Sodium Succinate 125 MG/2 ML SDV IVPUSH ONE (18:39)
--- NOTE | 2020-01-23 18:45 | EDM.PDOC ---
ED HPI GENERAL MEDICAL PROBLEM - General Chief Complaint: General Stated Complaint: cough, fever, shakes Time Seen by Provider: 01/23/20 18:20 Source of Information: Reports: Patient History Limitations: Reports: No Limitations - History of Present Illness INITIAL COMMENTS - FREE TEXT/NARRATIVE: Patient comes into the emergency department with complaints of body aches, fever, generalized fatigue. Patient states that he developed a cough approximately 1 week ago and he felt the last 24 hours he was doing fairly well until he woke up this morning he states that he had overall body aches, chills, weakness, fatigue, fever and worsening cough. 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 He denies any concerns or issues with the healing process of the wound. He denies any foul smell, redness, heat, or drainage. States that the arm is looking much better than it did and swelling has improved significantly. He denies any interventions that make the symptoms worse or better. Patient does state that he has slowly progressed this of breath throughout the day. Dates he now has shortness of breath while at rest normal finding for him. He denies any any recent knowledge of a COVID-19 exposure or any recent testing. Patient states he has been relatively healthy prior to this. Onset: Gradual Duration: Getting Worse Quality: Reports: Other Severity: Moderate Improves with: Reports: None Worsens with: Reports: None Associated Symptoms: Reports: Cough, Fever/Chills, Headaches, Malaise, Shortness of Breath, Weakness - Related Data Allergies Allergy/AdvReac Type Severity Reaction Status Date / Time azathioprine Allergy Confusion Verified 01/23/20 19:07 Penicillins Allergy Rash Verified 01/23/20 19:07 Stqnmto-Roi-Vlc Reductase AdvReac Unknown Liver Verified 01/23/20 19:07 Inhibitor Problems Home Meds: Home Meds Albuterol/Ipratropium [Combivent Respimat] 1 puff INH Q6HR PRN 07/12/13 [History] Tiotropium [Spiriva Handihaler] 18 mcg INH DAILY 07/12/13 [History] Aspirin [Low Dose Aspirin EC] 81 mg PO DAILY 01/26/14 [History] Cinnamon Bark [Cinnamon] 500 mg PO BID 10/04/18 [History] Latanoprost 1 drop EYEBOTH BEDTIME 10/04/18 [History] Naproxen Sodium 220 mg PO DAILY PRN 10/04/18 [History] metFORMIN [Glucophage] 500 mg PO BIDMEALS 10/04/18 [History] Rosuvastatin Calcium 10 mg PO BEDTIME 03/04/19 [History] Past Medical History HEENT History: Reports: Allergic Rhinitis Cardiovascular History: Reports: High Cholesterol Respiratory History: Reports: COPD, SOB Gastrointestinal History: Reports: Inflammatory Bowel Disease Endocrine/Metabolic History: Reports: Diabetes, Type II, Other (See Below) Other Endocrine/Metabolic History: LU: nonalcoholic steatohepatitis Dermatologic History: Reports: Psoriasis - Infectious Disease History Infectious Disease History: Reports: Chicken Pox - Past Surgical History GI Surgical History: Reports: Other (See Below) Other GI Surgeries/Procedures: ileostomy Social & Family History - Family History Family Medical History: Noncontributory - Caffeine Use Caffeine Use: Reports: Coffee, Soda - Living Situation & Occupation Occupation: Employed ED ROS GENERAL - Review of Systems Review Of Systems: Comprehensive ROS is negative, except as noted in HPI. Constitutional: Reports: Fever, Chills HEENT: Reports: No Symptoms Respiratory: Reports: No Symptoms Cardiovascular: Reports: No Symptoms Endocrine: Reports: No Symptoms GI/Abdominal: Reports: No Symptoms : Reports: No Symptoms Musculoskeletal: Reports: No Symptoms Skin: Reports: No Symptoms Neurological: Reports: No Symptoms Psychiatric: Reports: No Symptoms Hematologic/Lymphatic: Reports: No Symptoms Immunologic: Reports: No Symptoms ED EXAM, GENERAL - Physical Exam Exam: See Below Exam Limited By: No Limitations General Appearance: Alert, WD/WN, No Apparent Distress Throat/Mouth: Normal Inspection, Normal Lips, No Airway Compromise Head: Atraumatic, Normocephalic Respiratory/Chest: Decreased Breath Sounds, Rales, Rhonchi, Wheezing Cardiovascular: Normal Peripheral Pulses, No Edema, Tachycardia Peripheral Pulses: 4+: Radial (L), Radial (R) Extremities: Normal Inspection, Normal Range of Motion, Non-Tender, No Pedal Edema, Normal Capillary Refill Neurological: Alert, Oriented, Normal Cognition, Normal Gait Psychiatric: Normal Affect, Normal Mood Skin Exam: Warm, Dry, Intact, Normal Color, Increased Warmth, Other (right arm- forearm healing incision with stitches present/intake. Redness around site will mild swelling and large amount of healing ecchymosis throughout forearm) Course - Vital Signs Last Recorded V/S: Last Vital Signs Temp 39.2 C H 01/23/20 18:20 Pulse 117 H 01/23/20 19:18 Resp 20 01/23/20 19:18 BP 131/75 01/23/20 19:18 Pulse Ox 96 01/23/20 19:18 - Orders/Labs/Meds Orders: Active Orders 24 hr Category Date Time Status EKG Documentation Completion [RC] STAT Care 01/23/20 18:37 Active RT Aerosol Therapy [RC] ASDIRECTED Care 01/23/20 18:39 Active CULTURE BLOOD [BC] Stat Lab 01/23/20 18:34 Received CULTURE BLOOD [BC] Stat Lab 01/23/20 19:12 Received Sodium Chloride 0.9% [Saline Flush] Med 01/23/20 18:36 Active 10 ml FLUSH ASDIRECTED PRN Blood Culture x2 Reflex Set [OM.PC] Stat Oth 01/23/20 18:37 Ordered Peripheral IV Insertion Adult [OM.PC] Stat Oth 01/23/20 18:36 Ordered Medication Orders Sodium Chloride (Saline Flush) 10 ml FLUSH ASDIRECTED PRN PRN Reason: Keep Vein Open Labs: Laboratory Tests 01/23/20 01/23/20 01/23/20 Range/Units 18:17 18:30 18:34 WBC 15.2 H (4.0-10.0) x10^3/uL RBC 4.60 (4.5-6.0) x10^6/uL Hgb 13.6 L (14.0-18.0) g/dL Hct 38.9 L (40.0-52.0) % MCV 84.6 (78.0-93.0) fL MCH 29.6 (26.0-32.0) pg MCHC 35.0 (32.0-36.0) g/dL RDW Coeff of Christine 13.3 (10.0-15.0) % Plt Count 245 D (130-400) x10^3/uL Neut % (Auto) 83.3 H (50.0-80.0) % Lymph % (Auto) 7.2 L (25.0-50.0) % Falls % (Auto) 6.4 (2.0-11.0) % Eos % (Auto) 3.0 (0.0-4.0) % Baso % (Auto) 0.1 L (0.2-1.2) % PT (9.5-12.3) SEC INR (2.0-3.5) Sodium (136-145) mmol/L Potassium (3.5-5.1) mmol/L Chloride (98-107) mmol/L Carbon Dioxide (21-32) mmol/L Anion Gap (10-20) mmol/L BUN (7-18) mg/dL Creatinine (0.70-1.30) mg/dL Est Cr Clr Drug Dosing mL/min Estimated GFR (MDRD) Glucose (74-106) mg/dL Lactic Acid (0.4-2.0) mmol/L Calcium (8.5-10.1) mg/dL Corrected Calcium (8.5-10.1) mg/dL Total Bilirubin (0.2-1.0) mg/dL AST (15-37) U/L ALT (16-63) U/L Alkaline Phosphatase (46-116) U/L Creatine Kinase (39-308) U/L Troponin I (<=0.056) ng/mL NT-Pro-B Natriuret Pep (<=125) pg/mL Total Protein (6.4-8.2) g/dL Albumin (3.4-5.0) g/dL Globulin Albumin/Globulin Ratio Urine Color Yellow (YELLOW) Urine Appearance Clear (CLEAR) Urine pH 6.5 (5.0-8.0) Ur Specific [place] 1.020 Urine Protein Negative (NEGATIVE) mg/dL Urine Glucose (UA) Negative (NEGATIVE) mg/dL Urine Ketones Negative (NEGATIVE) mg/dL Urine Occult Blood Trace-intact H (NEGATIVE) Urine Nitrite Negative (NEGATIVE) Urine Bilirubin Negative (NEGATIVE) Urine Urobilinogen 0.2 (0.2) EU/dL Ur Leukocyte Esterase Negative (NEGATIVE) Urine RBC 0-5 (NOT SEEN) /HPF Urine WBC 0-5 (NOT SEEN) /HPF Ur Squamous Epith Cells Rare (NEGATIVE) /HPF Urine Bacteria Not seen (NEGATIVE) /HPF Urine Mucus Not seen (NEGATIVE) /LPF COVID-19 (ADRIEN) Negative (NEGATIVE) 01/23/20 01/23/20 01/23/20 Range/Units 18:34 18:34 18:34 WBC (4.0-10.0) x10^3/uL RBC (4.5-6.0) x10^6/uL Hgb (14.0-18.0) g/dL Hct (40.0-52.0) % MCV (78.0-93.0) fL MCH (26.0-32.0) pg MCHC (32.0-36.0) g/dL RDW Coeff of Christine (10.0-15.0) % Plt Count (130-400) x10^3/uL Neut % (Auto) (50.0-80.0) % Lymph % (Auto) (25.0-50.0) % Falls % (Auto) (2.0-11.0) % Eos % (Auto) (0.0-4.0) % Baso % (Auto) (0.2-1.2) % PT 9.8 (9.5-12.3) SEC INR 0.9 L (2.0-3.5) Sodium 134 L (136-145) mmol/L Potassium 4.4 (3.5-5.1) mmol/L Chloride 98 (98-107) mmol/L Carbon Dioxide 28 (21-32) mmol/L Anion Gap 12.4 (10-20) mmol/L BUN 22 H (7-18) mg/dL Creatinine 1.0 (0.70-1.30) mg/dL Est Cr Clr Drug Dosing 72.91 mL/min Estimated GFR (MDRD) > 60 Glucose 125 H (74-106) mg/dL Lactic Acid 1.3 (0.4-2.0) mmol/L Calcium 9.2 (8.5-10.1) mg/dL Corrected Calcium 9.20 (8.5-10.1) mg/dL Total Bilirubin 1.1 H (0.2-1.0) mg/dL AST 62 H (15-37) U/L ALT 73 H (16-63) U/L Alkaline Phosphatase 350 H (46-116) U/L Creatine Kinase 63 (39-308) U/L Troponin I < 0.017 (<=0.056) ng/mL NT-Pro-B Natriuret Pep 126 H (<=125) pg/mL Total Protein 8.4 H (6.4-8.2) g/dL Albumin 4.0 (3.4-5.0) g/dL Globulin 4.4 Albumin/Globulin Ratio 0.91 Urine Color (YELLOW) Urine Appearance (CLEAR) Urine pH (5.0-8.0) Ur Specific [place] Urine Protein (NEGATIVE) mg/dL Urine Glucose (UA) (NEGATIVE) mg/dL Urine Ketones (NEGATIVE) mg/dL Urine Occult Blood (NEGATIVE) Urine Nitrite (NEGATIVE) Urine Bilirubin (NEGATIVE) Urine Urobilinogen (0.2) EU/dL Ur Leukocyte Esterase (NEGATIVE) Urine RBC (NOT SEEN) /HPF Urine WBC (NOT SEEN) /HPF Ur Squamous Epith Cells (NEGATIVE) /HPF Urine Bacteria (NEGATIVE) /HPF Urine Mucus (NEGATIVE) /LPF COVID-19 (ADRIEN) (NEGATIVE) Meds: Medications Generic Name Dose Route Start Last Admin Trade Name Freq PRN Reason Stop Dose Admin Sodium Chloride 10 ml 01/23/20 18:36 Saline Flush FLUSH ASDIRECTED PRN Keep Vein Open Discontinued Medications Generic Name Dose Route Start Last Admin Trade Name Freq PRN Reason Stop Dose Admin Acetaminophen 1,000 mg 01/23/20 18:38 01/23/20 18:53 Tylenol Extra Strength PO 01/23/20 18:39 Not Given ONETIME ONE Albuterol/Ipratropium 3 ml 01/23/20 18:39 01/23/20 18:52 Duoneb 3.0-0.5 Mg/3 Ml NEB 01/23/20 18:40 3 ml ONETIME ONE Administration Ceftriaxone Sodium 1 gm 01/23/20 18:37 01/23/20 18:52 Rocephin IVPUSH 01/23/20 18:38 1 gm ONETIME ONE Administration Sodium Chloride 1,000 mls @ 1,000 mls/hr 01/23/20 18:37 01/23/20 18:45 Normal Saline IV 01/23/20 19:36 1,000 mls/hr ONETIME ONE Administration Methylprednisolone Sodium Succinate 125 mg 01/23/20 18:39 01/23/20 18:52 Solu-Medrol IVPUSH 01/23/20 18:40 125 mg ONETIME ONE Administration Naproxen 500 mg 01/23/20 19:08 08/01/20 19:32 Naprosyn PO 01/23/20 19:09 500 mg ONETIME ONE Administration Departure - Departure Time of Disposition: 20:20 Disposition: Admitted As Inpatient 66 Condition: Good Clinical Impression: SOB (shortness of breath), Respiratory distress Pneumonia Qualifiers: Pneumonia type: due to unspecified organism Laterality: unspecified laterality Lung location: unspecified part of lung Qualified Code(s): J18.9 - Pneumonia, unspecified organism Fever Qualifiers: Fever type: unspecified Qualified Code(s): R50.9 - Fever, unspecified - Discharge Information *PRESCRIPTION DRUG MONITORING PROGRAM REVIEWED*: Not Applicable *COPY OF PRESCRIPTION DRUG MONITORING REPORT IN PATIENT NEELA: Not Applicable Forms: ED Department Discharge Sepsis Event Note (ED) - Focused Exam Vital Signs: Vital Signs Temp Pulse Resp BP Pulse Ox 01/23/20 19:18 117 H 20 131/75 96 01/23/20 18:20 39.2 C H 125 H 28 H 154/84 H 95 - My Orders Last 24 Hours: My Active Orders 01/23/20 18:34 CULTURE BLOOD [BC] Stat 01/23/20 18:36 Sodium Chloride 0.9% [Saline Flush] 10 ml FLUSH ASDIRECTED PRN Peripheral IV Insertion Adult [OM.PC] Stat 01/23/20 18:37 EKG Documentation Completion [RC] STAT Blood Culture x2 Reflex Set [OM.PC] Stat 01/23/20 18:39 RT Aerosol Therapy [RC] ASDIRECTED 01/23/20 19:12 CULTURE BLOOD [BC] Stat - Assessment/Plan Last 24 Hours: My Active Orders 01/23/20 18:34 CULTURE BLOOD [BC] Stat 01/23/20 18:36 Sodium Chloride 0.9% [Saline Flush] 10 ml FLUSH ASDIRECTED PRN Peripheral IV Insertion Adult [OM.PC] Stat 01/23/20 18:37 EKG Documentation Completion [RC] STAT Blood Culture x2 Reflex Set [OM.PC] Stat 01/23/20 18:39 RT Aerosol Therapy [RC] ASDIRECTED 01/23/20 19:12 CULTURE BLOOD [BC] Stat Assessment:: 1. fever 2. respiratory distress 3. fatigue 4. SOB 5. Pneumonia Plan: 1. Sepsis protocol initiated and followed 2. Labs completed in the ER. Results reviewed with the patient 3. Blood cultures completed 4. IV initiated in the emergency department 5. IV fluids provided- 1 L NS 6. EKG completed in ER- no acute findings 7. Rocephin 1gm given 8. Covid testing- negative 9. Solumedrol 125mg IV given 10. Duoneb completed in the ER 11. Consultation completed with-Dr. Quevedo She unfortunately is not available for admission at this time. Patient is not wishing to be transferred to [facility] for further medical issues. Pt will be admit ED services 12. Patient will be transferred to a higher level of care needing further medical and/or surgical interventions 13. Patient and nursing staff was updated regarding the plan of care 14. Patient and family are agreeable to the above plan of care Patient will be admitted to acute care due respiratory distress and pneumonia rule out sepsis. 1# Respiratory Distress - Continue to maintain 02 saturation greater than 92% - Duonebs every 4 hours hours to help with wheezing and SOB - Repeat labs in am - Continue to treat with Rocephin 1gm IV every 24 hours - Solumedrol 125mg IV daily 2# Pneumonia rule out sepsis - Continue Rocephin 1gm IV every 24 hours - Cardiac monitoring - Naproxen ordered to help with fever and discomfort - Repeat labs in am - Continue to monitor recent arm incision if drainage is noted will culture - NS 75ml/hr maintenance Patient will be admitted as a code 1 with regular diet, up as christiana, Pt on ASA daily and ambulation encouraged for DVT prophylaxis, abx will be given daily, cardiac monitoring ordered, daily labs, neb treatments, and continue all at home medications. Nursing updated. All questions and concerns addressed prior to the patient being admitted.
[2020-01-23] MEDS ORDERED: Naproxen 500 MG Tab PO ONE (19:08)
[2020-01-23 19:12] LABS: CHLORIDE,CL 98 mmol/L (98-107); SODIUM,NA 134 mmol/L (136-145)
[2020-01-23 19:16] LABS: ANION GAP 12.4 mmol/L (10-20)
--- NOTE | 2020-01-23 19:54 | CR ---
[id number] RAD/RAD Chest PA or AP 1V EXAM: SINGLE VIEW CHEST. INDICATION: SHORTNESS OF BREATH COMPARISON: CORRELATION IS MADE WITH OCTOBER 04, 2018 FINDINGS: The lungs are clear but hyperaerated The cardiomediastinal contour is stable IMPRESSION: AIRWAY DISEASE Errol Simmons MD 01/23/201951 Thank you for allowing us to participate in the care of your patient.
[2020-01-23] MEDS ORDERED: Ondansetron 4 MG Tab.DIS PO PRN (20:50)
[2020-01-23] MEDS ORDERED: Ibuprofen 200 MG Tab PO PRN (20:50)
[2020-01-23] MEDS ORDERED: cefTRIAXone 1 GM Vial IVPUSH SCH (21:00)
[2020-01-23] MEDS: Azithromycin 500 MG in Sodium Chloride 0.9% 250 ML IV SCH (21:28)
[2020-01-23] MEDS: Albuterol/Ipratropium 3.0-0.5 MG/3 ML Neb Soln NEB SCH (21:28)
[2020-01-24] MEDS: Albuterol/Ipratropium 3.0-0.5 MG/3 ML Neb Soln NEB SCH ×6 (00:54→21:10)
[2020-01-24] MEDS ORDERED: Non-Formulary Medication 1 Each (Cinnamon Bark [Cinnamon] 500 MG) PO SCH (08:00)
[2020-01-24] MEDS: Aspirin 81 MG Tab.EC PO SCH (08:49)
[2020-01-24] MEDS: metFORMIN 500 MG Tab PO SCH ×2 (08:49→17:10)
[2020-01-24] MEDS: Glycopyrrolate 15.6 MCG Cap.W.Dev Kit of 6 IH SCH ×2 (08:52→21:09)
--- NOTE | 2020-01-24 11:56 | PCM.PN ---
- General Info Date of Service: 01/24/20 Functional Status: Reports: Pain Controlled, Tolerating Diet, Ambulating, Urinating - Review of Systems General: Reports: No Symptoms HEENT: Reports: No Symptoms Pulmonary: Reports: Shortness of Breath Cardiovascular: Reports: Dyspnea on Exertion Gastrointestinal: Reports: No Symptoms Genitourinary: Reports: No Symptoms Musculoskeletal: Reports: No Symptoms Skin: Reports: No Symptoms Neurological: Reports: No Symptoms Psychiatric: Reports: No Symptoms - Patient Data Vitals - Most Recent: Last Vital Signs Temp 36.3 C 01/24/20 05:00 Pulse 86 01/24/20 05:00 Resp 18 01/24/20 05:00 BP 102/60 01/24/20 05:00 Pulse Ox 96 01/24/20 05:00 Weight - Most Recent: 73.482 kg I&O - Last 24 Hours: Intake & Output 01/23/20 01/24/20 01/24/20 22:59 06:59 14:59 Output Total 750 Balance -750 Lab Results Last 24 Hours: Laboratory Results - last 24 hr 01/23/20 01/23/20 01/23/20 Range/Units 18:17 18:30 18:34 WBC 15.2 H (4.0-10.0) x10^3/uL RBC 4.60 (4.5-6.0) x10^6/uL Hgb 13.6 L (14.0-18.0) g/dL Hct 38.9 L (40.0-52.0) % MCV 84.6 (78.0-93.0) fL MCH 29.6 (26.0-32.0) pg MCHC 35.0 (32.0-36.0) g/dL RDW Coeff of Christine 13.3 (10.0-15.0) % Plt Count 245 D (130-400) x10^3/uL Neut % (Auto) 83.3 H (50.0-80.0) % Lymph % (Auto) 7.2 L (25.0-50.0) % [place] % (Auto) 6.4 (2.0-11.0) % Eos % (Auto) 3.0 (0.0-4.0) % Baso % (Auto) 0.1 L (0.2-1.2) % PT (9.5-12.3) SEC INR (2.0-3.5) Sodium (136-145) mmol/L Potassium (3.5-5.1) mmol/L Chloride (98-107) mmol/L Carbon Dioxide (21-32) mmol/L Anion Gap (10-20) mmol/L BUN (7-18) mg/dL Creatinine (0.70-1.30) mg/dL Est Cr Clr Drug Dosing mL/min Estimated GFR (MDRD) Glucose (74-106) mg/dL Lactic Acid (0.4-2.0) mmol/L Calcium (8.5-10.1) mg/dL Corrected Calcium (8.5-10.1) mg/dL Total Bilirubin (0.2-1.0) mg/dL AST (15-37) U/L ALT (16-63) U/L Alkaline Phosphatase (46-116) U/L Creatine Kinase (39-308) U/L Troponin I (<=0.056) ng/mL NT-Pro-B Natriuret Pep (<=125) pg/mL Total Protein (6.4-8.2) g/dL Albumin (3.4-5.0) g/dL Globulin Albumin/Globulin Ratio Urine Color Yellow (YELLOW) Urine Appearance Clear (CLEAR) Urine pH 6.5 (5.0-8.0) Ur Specific [place] 1.020 Urine Protein Negative (NEGATIVE) mg/dL Urine Glucose (UA) Negative (NEGATIVE) mg/dL Urine Ketones Negative (NEGATIVE) mg/dL Urine Occult Blood Trace-intact H (NEGATIVE) Urine Nitrite Negative (NEGATIVE) Urine Bilirubin Negative (NEGATIVE) Urine Urobilinogen 0.2 (0.2) EU/dL Ur Leukocyte Esterase Negative (NEGATIVE) Urine RBC 0-5 (NOT SEEN) /HPF Urine WBC 0-5 (NOT SEEN) /HPF Ur Squamous Epith Cells Rare (NEGATIVE) /HPF Urine Bacteria Not seen (NEGATIVE) /HPF Urine Mucus Not seen (NEGATIVE) /LPF COVID-19 ([facility]) Negative (NEGATIVE) 01/23/20 01/23/20 01/23/20 Range/Units 18:34 18:34 18:34 WBC (4.0-10.0) x10^3/uL RBC (4.5-6.0) x10^6/uL Hgb (14.0-18.0) g/dL Hct (40.0-52.0) % MCV (78.0-93.0) fL MCH (26.0-32.0) pg MCHC (32.0-36.0) g/dL RDW Coeff of Christine (10.0-15.0) % Plt Count (130-400) x10^3/uL Neut % (Auto) (50.0-80.0) % Lymph % (Auto) (25.0-50.0) % [place] % (Auto) (2.0-11.0) % Eos % (Auto) (0.0-4.0) % Baso % (Auto) (0.2-1.2) % PT 9.8 (9.5-12.3) SEC INR 0.9 L (2.0-3.5) Sodium 134 L (136-145) mmol/L Potassium 4.4 (3.5-5.1) mmol/L Chloride 98 (98-107) mmol/L Carbon Dioxide 28 (21-32) mmol/L Anion Gap 12.4 (10-20) mmol/L BUN 22 H (7-18) mg/dL Creatinine 1.0 (0.70-1.30) mg/dL Est Cr Clr Drug Dosing 72.91 mL/min Estimated GFR (MDRD) > 60 Glucose 125 H (74-106) mg/dL Lactic Acid 1.3 (0.4-2.0) mmol/L Calcium 9.2 (8.5-10.1) mg/dL Corrected Calcium 9.20 (8.5-10.1) mg/dL Total Bilirubin 1.1 H (0.2-1.0) mg/dL AST 62 H (15-37) U/L ALT 73 H (16-63) U/L Alkaline Phosphatase 350 H (46-116) U/L Creatine Kinase 63 (39-308) U/L Troponin I < 0.017 (<=0.056) ng/mL NT-Pro-B Natriuret Pep 126 H (<=125) pg/mL Total Protein 8.4 H (6.4-8.2) g/dL Albumin 4.0 (3.4-5.0) g/dL Globulin 4.4 Albumin/Globulin Ratio 0.91 Urine Color (YELLOW) Urine Appearance (CLEAR) Urine pH (5.0-8.0) Ur Specific [place] Urine Protein (NEGATIVE) mg/dL Urine Glucose (UA) (NEGATIVE) mg/dL Urine Ketones (NEGATIVE) mg/dL Urine Occult Blood (NEGATIVE) Urine Nitrite (NEGATIVE) Urine Bilirubin (NEGATIVE) Urine Urobilinogen (0.2) EU/dL Ur Leukocyte Esterase (NEGATIVE) Urine RBC (NOT SEEN) /HPF Urine WBC (NOT SEEN) /HPF Ur Squamous Epith Cells (NEGATIVE) /HPF Urine Bacteria (NEGATIVE) /HPF Urine Mucus (NEGATIVE) /LPF COVID-19 ([facility]) (NEGATIVE) 01/24/20 Range/Units 08:03 WBC 14.8 H (4.0-10.0) x10^3/uL RBC 4.02 L (4.5-6.0) x10^6/uL Hgb 11.8 L D (14.0-18.0) g/dL Hct 34.0 L (40.0-52.0) % MCV 84.6 (78.0-93.0) fL MCH 29.4 (26.0-32.0) pg MCHC 34.7 (32.0-36.0) g/dL RDW Coeff of Christine 13.2 (10.0-15.0) % Plt Count 203 (130-400) x10^3/uL Neut % (Auto) 91.1 H (50.0-80.0) % Lymph % (Auto) 6.8 L (25.0-50.0) % [place] % (Auto) 1.9 L (2.0-11.0) % Eos % (Auto) 0.1 (0.0-4.0) % Baso % (Auto) 0.1 L (0.2-1.2) % PT (9.5-12.3) SEC INR (2.0-3.5) Sodium (136-145) mmol/L Potassium (3.5-5.1) mmol/L Chloride (98-107) mmol/L Carbon Dioxide (21-32) mmol/L Anion Gap (10-20) mmol/L BUN (7-18) mg/dL Creatinine (0.70-1.30) mg/dL Est Cr Clr Drug Dosing mL/min Estimated GFR (MDRD) Glucose (74-106) mg/dL Lactic Acid (0.4-2.0) mmol/L Calcium (8.5-10.1) mg/dL Corrected Calcium (8.5-10.1) mg/dL Total Bilirubin (0.2-1.0) mg/dL AST (15-37) U/L ALT (16-63) U/L Alkaline Phosphatase (46-116) U/L Creatine Kinase (39-308) U/L Troponin I (<=0.056) ng/mL NT-Pro-B Natriuret Pep (<=125) pg/mL Total Protein (6.4-8.2) g/dL Albumin (3.4-5.0) g/dL Globulin Albumin/Globulin Ratio Urine Color (YELLOW) Urine Appearance (CLEAR) Urine pH (5.0-8.0) Ur Specific [place] Urine Protein (NEGATIVE) mg/dL Urine Glucose (UA) (NEGATIVE) mg/dL Urine Ketones (NEGATIVE) mg/dL Urine Occult Blood (NEGATIVE) Urine Nitrite (NEGATIVE) Urine Bilirubin (NEGATIVE) Urine Urobilinogen (0.2) EU/dL Ur Leukocyte Esterase (NEGATIVE) Urine RBC (NOT SEEN) /HPF Urine WBC (NOT SEEN) /HPF Ur Squamous Epith Cells (NEGATIVE) /HPF Urine Bacteria (NEGATIVE) /HPF Urine Mucus (NEGATIVE) /LPF COVID-19 ([facility]) (NEGATIVE) Med Orders - Current: Current Medications Albuterol/Ipratropium (Duoneb 3.0-0.5 Mg/3 Ml) 3 ml NEB Q4H [facility] Last Admin: 01/24/20 10:30 Dose: 3 ml Documented by: Aspirin (Halfprin) 81 mg PO DAILY [facility] Last Admin: 01/24/20 08:49 Dose: 81 mg Documented by: Atorvastatin Calcium (Lipitor) 40 mg PO BEDTIME [facility] Ceftriaxone Sodium (Rocephin) 1 gm IVPUSH Q24H [facility] Glycopyrrolate (Seebri Neohaler) 18 mcg IH BID [facility] Last Admin: 01/24/20 08:52 Dose: 1 inhalation Documented by: Azithromycin 500 mg/ Sodium (Chloride) 250 mls @ 250 mls/hr IV Q24H [facility] Last Admin: 01/23/20 21:28 Dose: 250 mls/hr Documented by: Ibuprofen (Motrin) 600 mg PO Q6H PRN PRN Reason: Pain (mild 1-3) Latanoprost (Xalatan 0.005% Ophth Soln) 0 ml EYEBOTH BEDTIME [facility] Metformin HCl (Glucophage) 500 mg PO BIDMEALS [facility] Last Admin: 01/24/20 08:49 Dose: 500 mg Documented by: Non-Formulary Medication (Cinnamon Bark [Cinnamon]) 500 mg PO BID [facility] Ondansetron HCl (Zofran Odt) 4 mg PO Q6H PRN PRN Reason: nausea, able to take PO Sodium Chloride (Saline Flush) 10 ml FLUSH ASDIRECTED PRN PRN Reason: Keep Vein Open Discontinued Medications Acetaminophen (Tylenol Extra Strength) 1,000 mg PO ONETIME ONE Stop: 01/23/20 18:39 Last Admin: 01/23/20 18:53 Dose: Not Given Documented by: Albuterol/Ipratropium (Duoneb 3.0-0.5 Mg/3 Ml) 3 ml NEB ONETIME ONE Stop: 01/23/20 18:40 Last Admin: 01/23/20 18:52 Dose: 3 ml Documented by: Ceftriaxone Sodium (Rocephin) 1 gm IVPUSH ONETIME ONE Stop: 01/23/20 18:38 Last Admin: 01/23/20 18:52 Dose: 1 gm Documented by: Ceftriaxone Sodium (Rocephin) 1 gm IVPUSH Q24H [facility] Last Admin: 01/23/20 21:29 Dose: 1 gm Documented by: Sodium Chloride (Normal Saline) 1,000 mls @ 1,000 mls/hr IV ONETIME ONE Stop: 01/23/20 19:36 Last Admin: 01/23/20 18:45 Dose: 1,000 mls/hr Documented by: Methylprednisolone Sodium Succinate (Solu-Medrol) 125 mg IVPUSH ONETIME ONE Stop: 01/23/20 18:40 Last Admin: 01/23/20 18:52 Dose: 125 mg Documented by: Naproxen (Naprosyn) 500 mg PO ONETIME ONE Stop: 01/23/20 19:09 Last Admin: 01/23/20 19:32 Dose: 500 mg Documented by: - Exam General: Alert, Oriented, Cooperative HEENT: Pupils Equal, Pupils Reactive, EOMI, Mucous Membr. Moist/[place] Neck: Supple Lungs: Normal Respiratory Effort, Decreased Breath Sounds, Wheezing Cardiovascular: Regular Rate, Regular Rhythm GI/Abdominal Exam: Normal Bowel Sounds, Soft, Non-Tender, No Organomegaly, No Distention, No Abnormal Bruit, No Mass, Pelvis Stable Back Exam: Normal Inspection, Full Range of Motion Extremities: Normal Inspection, Normal Range of Motion, Non-Tender, No Pedal Edema, Normal Capillary Refill Peripheral Pulses: 4+: Radial (L), Radial (R), Dorsalis Pedis (L), Dorsalis Pedis (R) Skin: Warm, Dry, Intact Wound/Incisions: Healing Well Neurological: No New Focal Deficit Psy/Mental Status: Alert, Normal Affect, Normal Mood Sepsis Event Note - Evaluation Sepsis Screening Result: No Definite Risk - Focused Exam Vital Signs: Vital Signs Temp Pulse Resp BP Pulse Ox 01/24/20 05:00 36.3 C 86 18 102/60 96 01/24/20 01:00 36.3 C 94 20 95/54 L 98 Date Exam was Performed: 01/24/20 Time Exam was Performed: 11:51 - Problem List & Annotations (1) Fever SNOMED Code(s): 596255011 Code(s): R50.9 - FEVER, UNSPECIFIED Status: Acute Current Visit: Yes Qualifiers: Fever type: unspecified Qualified Code(s): R50.9 - Fever, unspecified (2) Pneumonia SNOMED Code(s): 764729932 Code(s): J18.9 - PNEUMONIA, UNSPECIFIED ORGANISM Status: Acute Current Visit: Yes Qualifiers: Pneumonia type: due to unspecified organism Laterality: unspecified laterality Lung location: unspecified part of lung Qualified Code(s): J18.9 - Pneumonia, unspecified organism (3) Respiratory distress SNOMED Code(s): 710984476 Code(s): R06.03 - ACUTE RESPIRATORY DISTRESS Status: Acute Current Visit: Yes (4) SOB (shortness of breath) SNOMED Code(s): 501630144 Code(s): R06.02 - SHORTNESS OF BREATH Status: Acute Current Visit: Yes (5) COPD with exacerbation SNOMED Code(s): 941170799 Code(s): J44.1 - CHRONIC OBSTRUCTIVE PULMONARY DISEASE W (ACUTE) EXACERBATION Status: Acute Priority: Medium Current Visit: No - Problem List Review Problem List Initiated/Reviewed/Updated: Yes - My Orders Last 24 Hours: My Active Orders 01/23/20 18:34 CULTURE BLOOD [BC] Stat 01/23/20 18:36 Sodium Chloride 0.9% [Saline Flush] 10 ml FLUSH ASDIRECTED PRN Peripheral IV Insertion Adult [OM.PC] Stat 01/23/20 18:37 Blood Culture x2 Reflex Set [OM.PC] Stat 01/23/20 18:39 RT Aerosol Therapy [RC] ASDIRECTED 01/23/20 19:12 CULTURE BLOOD [BC] Stat 01/23/20 20:19 Admission Status [Patient Status] [ADT] Routine 01/23/20 20:50 Ambulate [RC] , Up ad Elisha [RC] Ibuprofen [Motrin] 600 mg PO Q6H PRN Ondansetron [Zofran ODT] 4 mg PO Q6H PRN Resuscitation Status Routine 01/23/20 20:51 Cardiac Monitoring [RC] 02,06,10,14,18,22 Dietary Supplements [RC] 10,16 Intake and Output [RC] 06,18 Oxygen Therapy [RC] PRN Oxygen Therapy [RC] PRN Pulse Oximetry [RC] 06,18 VTE/DVT Education [RC] .PRN Vital Signs [RC] 06,10,14,18,22,02 Blood Culture x2 Reflex Set [OM.PC] Stat 01/23/20 20:52 RT Aerosol Therapy [RC] 01,05,09,13,17,21 01/23/20 21:00 Albuterol/Ipratropium [DuoNeb 3.0-0.5 MG/3 ML] 3 ml NEB Q4H Azithromycin [Zithromax] 500 mg Sodium Chloride 0.9% [Normal Saline (AdvBag)] 250 ml IV Q24H 01/24/20 08:00 Aspirin [Halfprin] 81 mg PO DAILY Cinnamon Bark [Cinnamon] 500 mg PO BID Glycopyrrolate [Seebri Neohaler] 18 mcg IH BID metFORMIN [Glucophage] 500 mg PO BIDMEALS 01/24/20 20:00 Latanoprost [Xalatan 0.005% Ophth Soln] 0 ml EYEBOTH BEDTIME atorvaSTATin [Lipitor] 40 mg PO BEDTIME 01/24/20 21:00 cefTRIAXone [Rocephin] 1 gm IVPUSH Q24H - Plan Plan:: Patient will continue to remain in acute care status due respiratory distress/wheezing and pneumonia rule out sepsis. 1# Respiratory Distress - Continue to maintain 02 saturation greater than 92% - Duonebs every 4 hours hours to help with wheezing and SOB - Repeat labs in am - Continue to treat with Rocephin 1gm IV every 24 hours - Solumedrol 125mg IV daily 2# Pneumonia rule out sepsis - Continue Rocephin 1gm IV every 24 hours - Cardiac monitoring- patient has had not concerns or tachycardia any longer. Will d/c tele and continue to monitor with vital signs and reinitiate if needed - Naproxen ordered to help with fever and discomfort - Repeat labs in am - Continue to monitor recent arm incision if drainage is noted will culture - NS 75ml/hr maintenance Patient will remain as a code 1 with regular diet, up as christiana, Pt on ASA daily and ambulation encouraged for DVT prophylaxis, abx will be given daily, daily labs, neb treatments, and continue all at home medications. Nursing updated. All questions and concerns addressed prior to the patient being admitted. Dr. Quevedo will be updated later today regarding the patients plan of care and status. Plan will be to transfer services in the am.
[2020-01-24] MEDS ORDERED: Latanoprost 0.005% Ophth Soln 2.5 ML Bottle EYEBOTH SCH (20:00)
[2020-01-24] MEDS ORDERED: atorvaSTATin 40 MG Tab PO SCH (20:00)
[2020-01-24] MEDS ORDERED: cefTRIAXone 1 GM Vial IVPUSH SCH (21:00)
[2020-01-24] MEDS: Azithromycin 500 MG in Sodium Chloride 0.9% 250 ML IV SCH (21:09)
[2020-01-25] MEDS: Albuterol/Ipratropium 3.0-0.5 MG/3 ML Neb Soln NEB SCH ×3 (01:13→09:49)
[2020-01-25 07:17] LABS: CHLORIDE,CL 106 mmol/L (98-107); SODIUM,NA 139 mmol/L (136-145)
[2020-01-25 07:23] LABS: ANION GAP 9.8 mmol/L (10-20)
[2020-01-25] MEDS: Aspirin 81 MG Tab.EC PO SCH (07:47)
[2020-01-25] MEDS: metFORMIN 500 MG Tab PO SCH (07:47)
[2020-01-25] MEDS: Glycopyrrolate 15.6 MCG Cap.W.Dev Kit of 6 IH SCH (09:52)
--- NOTE | 2020-01-25 10:44 | PCM.DCSUM1 ---
Discharge Summary - Hospital Course Free Text/Narrative:: Pt. was hospitalized in the afternoon of January 22 with community acquired pneumonia and COPD exacerbation. Pt. was quite dyspneic and weak on admission. Pt. was treated with IV rocephin, azithromycin, and steroids, and has been on scheduled nebulizer treatments since admission and states that he is feeling much better today. He was able to start ambulating with minimal difficulty yesterday.His exercise tolerance has gradually improved throughout the adm ission. Pt. currently denies any shortness of breath at rest. He states that his cough has "loosened" since admission. He states that his appetite has been normal. Labs have revealed a gradual improvement in his labs since admission. WBCs down to 14,000 from >15,000 on admission. His vitals are all within normal limits. He has not had an elevated white count since admission. Pt. states that he feels well enough to be discharged and is requesting release from the hospital. Diagnosis: Stroke: No - Discharge Data Discharge Date: 01/25/20 Discharge Disposition: Home, Self-Care 01 Condition: Good - Referral to Home Health Primary Care Physician: Nery Cornelius, DO - Discharge Diagnosis/Problem(s) (1) Fever SNOMED Code(s): 279995777 ICD Code: R50.9 - FEVER, UNSPECIFIED Status: Acute Current Visit: Yes Qualifiers: Fever type: unspecified Qualified Code(s): R50.9 - Fever, unspecified (2) Pneumonia SNOMED Code(s): 018876863 ICD Code: J18.9 - PNEUMONIA, UNSPECIFIED ORGANISM Status: Acute Current Visit: Yes Qualifiers: Pneumonia type: due to unspecified organism Laterality: unspecified laterality Lung location: unspecified part of lung Qualified Code(s): J18.9 - Pneumonia, unspecified organism (3) Respiratory distress SNOMED Code(s): 977340632 ICD Code: R06.03 - ACUTE RESPIRATORY DISTRESS Status: Acute Current Visit: Yes - Patient Instructions Diet: Diabetic Diet - Discharge Plan *PRESCRIPTION DRUG MONITORING PROGRAM REVIEWED*: Not Applicable *COPY OF PRESCRIPTION DRUG MONITORING REPORT IN PATIENT NEELA: Not Applicable Home Medications: Home Meds Albuterol/Ipratropium [Combivent Respimat] 1 puff INH Q6HR PRN 07/12/13 [History] Tiotropium [Spiriva Handihaler] 18 mcg INH DAILY 07/12/13 [History] Aspirin [Low Dose Aspirin EC] 81 mg PO DAILY 01/26/14 [History] Cinnamon Bark [Cinnamon] 500 mg PO BID 10/04/18 [History] Latanoprost 1 drop EYEBOTH BEDTIME 10/04/18 [History] Naproxen Sodium 220 mg PO DAILY PRN 10/04/18 [History] metFORMIN [Glucophage] 500 mg PO BIDMEALS 10/04/18 [History] Rosuvastatin Calcium 10 mg PO BEDTIME 03/04/19 [History] Patient Handouts: Chronic Obstructive Pulmonary Disease Exacerbation, [id number], Community-Acquired Pneumonia, Adult, [id number] Forms: ED Department Discharge Referrals: Nery Cornelius DO [Primary Care Provider] - 02/02/20 3:00 pm (You have a follow up appt. with Dr. Rona Cornelius on February 02, 2020 at [facility]) - Discharge Summary/Plan Comment DC Time >30 min.: Yes Discharge Summary/Plan Comment: Home to rest. Pt. was given his 3rd dose of IV rocephin and azithromycin prior to discharge today. Will given the patient 2 more doses of azithromycin Pt. was also started on prednisone 40mg once daily for 5 days. Continue with Combivent. Discussed findings with Dr. Cornelius who rounded on the patient as well. He will be scheduled for close hospital follow-up. Advised to drink plenty of fluids and to frequently walk and do incentive spirometry. - General Info Date of Service: 01/25/20 Functional Status: Reports: Pain Controlled - Review of Systems General: Reports: No Symptoms HEENT: Reports: No Symptoms Pulmonary: Reports: Cough, Sputum Cardiovascular: Reports: No Symptoms Gastrointestinal: Reports: No Symptoms Genitourinary: Reports: No Symptoms Musculoskeletal: Reports: No Symptoms Skin: Reports: No Symptoms Neurological: Reports: No Symptoms Psychiatric: Reports: No Symptoms - Patient Data Vitals - Most Recent: Last Vital Signs Temp 36.9 C 01/25/20 06:00 Pulse 106 H 01/25/20 06:00 Resp 16 01/25/20 06:00 BP 132/85 01/25/20 06:00 Pulse Ox 98 01/25/20 06:42 Weight - Most Recent: 73.482 kg I&O - Last 24 hours: Intake & Output 01/24/20 01/25/20 01/25/20 22:59 06:59 14:59 Intake Total 1260 300 Output Total 700 300 Balance 560 -300 300 Lab Results - Last 24 hrs: Laboratory Results - last 24 hr 01/25/20 01/25/20 Range/Units 06:46 06:46 WBC 14.0 H (4.0-10.0) x10^3/uL RBC 3.74 L (4.5-6.0) x10^6/uL Hgb 10.9 L (14.0-18.0) g/dL Hct 32.0 L (40.0-52.0) % MCV 85.6 (78.0-93.0) fL MCH 29.1 (26.0-32.0) pg MCHC 34.1 (32.0-36.0) g/dL RDW Coeff of Christine 13.5 (10.0-15.0) % Plt Count 197 (130-400) x10^3/uL Neut % (Auto) 82.0 H (50.0-80.0) % Lymph % (Auto) 9.9 L (25.0-50.0) % [place] % (Auto) 6.9 (2.0-11.0) % Eos % (Auto) 1.1 (0.0-4.0) % Baso % (Auto) 0.1 L (0.2-1.2) % Sodium 139 (136-145) mmol/L Potassium 3.8 (3.5-5.1) mmol/L Chloride 106 (98-107) mmol/L Carbon Dioxide 27 (21-32) mmol/L Anion Gap 9.8 L (10-20) mmol/L BUN 20 H (7-18) mg/dL Creatinine 0.9 (0.70-1.30) mg/dL Est Cr Clr Drug Dosing 79.98 mL/min Estimated GFR (MDRD) > 60 Glucose 136 H (74-106) mg/dL Calcium 8.3 L (8.5-10.1) mg/dL Corrected Calcium 8.94 (8.5-10.1) mg/dL Total Bilirubin 0.8 (0.2-1.0) mg/dL AST 40 H (15-37) U/L ALT 56 (16-63) U/L Alkaline Phosphatase 230 H (46-116) U/L Total Protein 6.7 (6.4-8.2) g/dL Albumin 3.2 L (3.4-5.0) g/dL Globulin 3.5 Albumin/Globulin Ratio 0.91 GRETA Results - Last 24 hrs: Microbiology 01/23/20 19:12 Aerobic Blood Culture - Preliminary Blood - Venous - Lab Draw NO GROWTH AFTER 1 DAY Anaerobic Blood Culture - Preliminary NO GROWTH AFTER 1 DAY 01/23/20 18:34 Aerobic Blood Culture - Preliminary Blood - Venous NO GROWTH AFTER 1 DAY Anaerobic Blood Culture - Preliminary NO GROWTH AFTER 1 DAY Med Orders - Current: Current Medications Albuterol/Ipratropium (Duoneb 3.0-0.5 Mg/3 Ml) 3 ml NEB Q4H [facility] Last Admin: 01/25/20 09:49 Dose: 3 ml Documented by: Aspirin (Halfprin) 81 mg PO DAILY [facility] Last Admin: 01/25/20 07:47 Dose: 81 mg Documented by: Atorvastatin Calcium (Lipitor) 40 mg PO BEDTIME [facility] Last Admin: 01/24/20 21:06 Dose: 40 mg Documented by: Ceftriaxone Sodium (Rocephin) 1 gm IVPUSH Q24H [facility] Last Admin: 01/24/20 21:10 Dose: 1 gm Documented by: Glycopyrrolate (Seebri Neohaler) 18 mcg IH BID [facility] Last Admin: 01/25/20 09:52 Dose: Not Given Documented by: Azithromycin 500 mg/ Sodium (Chloride) 250 mls @ 250 mls/hr IV Q24H [facility] Last Admin: 01/24/20 21:09 Dose: 250 mls/hr Documented by: Ibuprofen (Motrin) 600 mg PO Q6H PRN PRN Reason: Pain (mild 1-3) Latanoprost (Xalatan 0.005% Ophth Soln) 0 ml EYEBOTH BEDTIME [facility] Last Admin: 01/24/20 21:06 Dose: 1 drop Documented by: Metformin HCl (Glucophage) 500 mg PO BIDMEALS [facility] Last Admin: 01/25/20 07:47 Dose: 500 mg Documented by: Non-Formulary Medication (Cinnamon Bark [Cinnamon]) 500 mg PO BID [facility] Ondansetron HCl (Zofran Odt) 4 mg PO Q6H PRN PRN Reason: nausea, able to take PO Sodium Chloride (Saline Flush) 10 ml FLUSH ASDIRECTED PRN PRN Reason: Keep Vein Open Discontinued Medications Acetaminophen (Tylenol Extra Strength) 1,000 mg PO ONETIME ONE Stop: 01/23/20 18:39 Last Admin: 01/23/20 18:53 Dose: Not Given Documented by: Albuterol/Ipratropium (Duoneb 3.0-0.5 Mg/3 Ml) 3 ml NEB ONETIME ONE Stop: 01/23/20 18:40 Last Admin: 01/23/20 18:52 Dose: 3 ml Documented by: Ceftriaxone Sodium (Rocephin) 1 gm IVPUSH ONETIME ONE Stop: 01/23/20 18:38 Last Admin: 01/23/20 18:52 Dose: 1 gm Documented by: Ceftriaxone Sodium (Rocephin) 1 gm IVPUSH Q24H [facility] Last Admin: 01/23/20 21:29 Dose: 1 gm Documented by: Sodium Chloride (Normal Saline) 1,000 mls @ 1,000 mls/hr IV ONETIME ONE Stop: 01/23/20 19:36 Last Admin: 01/23/20 18:45 Dose: 1,000 mls/hr Documented by: Methylprednisolone Sodium Succinate (Solu-Medrol) 125 mg IVPUSH ONETIME ONE Stop: 01/23/20 18:40 Last Admin: 01/23/20 18:52 Dose: 125 mg Documented by: Naproxen (Naprosyn) 500 mg PO ONETIME ONE Stop: 01/23/20 19:09 Last Admin: 01/23/20 19:32 Dose: 500 mg Documented by: - Exam General: Reports: Alert, Oriented HEENT: Reports: Pupils Equal, Pupils Reactive, EOMI, Mucous Membr. Moist/[place] Neck: Reports: Supple Lungs: Reports: Normal Respiratory Effort, Decreased Breath Sounds, Crackles Cardiovascular: Reports: Regular Rate, Regular Rhythm GI/Abdominal Exam: Normal Bowel Sounds, Soft, Non-Tender, No Organomegaly, No Distention (Male) Exam: Deferred Rectal (Males) Exam: Deferred Back Exam: Reports: Normal Inspection, Full Range of Motion Extremities: Normal Inspection, Normal Range of Motion, Non-Tender, No Pedal Edema, Normal Capillary Refill Skin: Reports: Warm, Dry, Intact Wound/Incisions: Reports: Healing Well Neurological: Reports: No New Focal Deficit Psy/Mental Status: Reports: Alert, Normal Affect, Normal Mood EKG INTERPRETATION Rhythm: NSR [place]: Normal P-Wave: Present QRS: Normal ST-T: Normal QT: Normal
== END 2020-01-25 10:15 | disposition home or self-care (01) | DRG 190 ==
LOC: VM.ED 18:12 → VM.MS 20:19
PROVIDERS: ADMIT Nurse Practitioner; ATTEND Family Medicine
DX: J44.0 Chronic obstructive pulmonary disease with (acute) lower respiratory infection (principal); R06.02 Shortness of breath; J30.9 Allergic rhinitis, unspecified; J18.9 Pneumonia, unspecified organism; J44.9 Chronic obstructive pulmonary disease, unspecified; K58.9 Irritable bowel syndrome, unspecified; J44.1 Chronic obstructive pulmonary disease with (acute) exacerbation; K75.81 Nonalcoholic steatohepatitis (NASH); L40.9 Psoriasis, unspecified; Z93.2 Ileostomy status; E78.00 Pure hypercholesterolemia, unspecified; E11.9 Type 2 diabetes mellitus without complications; Z20.828 Contact with and (suspected) exposure to other viral communicable diseases; Z79.82 Long term (current) use of aspirin; Z88.1 Allergy status to other antibiotic agents; Z88.0 Allergy status to penicillin; Z88.8 Allergy status to other drugs, medicaments and biological substances; Z79.84 Long term (current) use of oral hypoglycemic drugs; Z79.899 Other long term (current) drug therapy
CPT/HCPCS: 36415; 71045; 80053; 81001; 82550; 83605; 83880; 84484; 85025; 85610; 87040; 93005; 94640; 96374; 96375; 99284-25; A9270-GY; J0456; J0696; J2930; J7030; J7050; J7620-GY; U0002

== ENCOUNTER 2023-03-06 09:02 | Emergency (ER) | payer MEDICARE, BC ==
[2023-03-06] MEDS: Ondansetron 4 MG/2 ML SDV IVPUSH ONE (09:18)
[2023-03-06 09:19] LABS: BASOPHILS PERCENT AUTO 0.2 % (0.2-1.2); EOSINOPHILS ABSOLUTE AUTO 0.4 x10^3/uL (0.0-0.5); EOSINOPHILS PERCENT AUTO 3.1 % (0.0-4.0); HEMOGLOBIN 13.9 g/dL (14.0-18.0); IMMATURE GRAN ABSOLUTE AUTO 0.02 x10^3/uL (0.00-0.07); LYMPHOCYTES ABSOLUTE AUTO 1.2 x10^3/uL (1.0-4.8); LYMPHOCYTES PERCENT AUTO 10.2 % (25.0-50.0); MEAN CORPUSCULAR HEMOGLOBIN 29.5 pg (26.0-32.0); MEAN CORPUSCULAR HGB CONC 34.8 g/dL (32.0-36.0); MEAN CORPUSCULAR VOLUME 84.9 fL (78.0-93.0); MONOCYTES ABSOLUTE AUTO 1.2 x10^3/uL (0.0-0.8); MONOCYTES PERCENT AUTO 10.1 % (2.0-11.0); NEUTROPHILS ABSOLUTE AUTO 8.8 x10^3/uL (1.8-7.7); NEUTROPHILS PERCENT AUTO 76.2 % (50.0-80.0); PLATELET COUNT,PLT 116 x10^3/uL (130-400); RED BLOOD CELL COUNT 4.71 x10^6/uL (4.5-6.0); WHITE BLOOD CELL COUNT,WBC 11.5 x10^3/uL (4.0-10.0)
[2023-03-06] MEDS: Ketorolac 15 MG/ML SDV IVPUSH ONE (09:20)
[2023-03-06] MEDS: Sodium Chloride 0.9% 1,000 ML IV SCH (09:20)
[2023-03-06] MEDS: HYDROmorphone 1 MG/ML Syringe IVPUSH ONE (09:22)
[2023-03-06 09:37] LABS: A/G RATIO 0.84; ALANINE AMINOTRANSFERASE,ALT 110 U/L (16-63); ALBUMIN 3.6 g/dL (3.4-5.0); ALKALINE PHOSPHATASE 575 U/L (46-116); ANION GAP 15.5 mmol/L (5-15); ASPARTATE AMNIOTRANSFERASE,AST 79 U/L (15-37); BILIRUBIN TOTAL 1.6 mg/dL (0.2-1.0); BLOOD UREA NITROGEN,BUN 23 mg/dL (7-18); CALCIUM 9.1 mg/dL (8.5-10.1); CARBON DIOXIDE,CO2 26 mmol/L (21-32); CHLORIDE,CL 96 mmol/L (98-107); CREATININE 1.6 mg/dL (0.70-1.30); ESTIMATED GFR 46 mL/min (>=60); GLUCOSE RANDOM 175 mg/dL (70-99); POTASSIUM,K 4.5 mmol/L (3.5-5.1); PROTEIN TOTAL,TP 7.9 g/dL (6.4-8.2); SODIUM,NA 133 mmol/L (136-145)
[2023-03-06 09:41] LABS: LACTIC ACID 2.1 mmol/L (0.4-2.0)
[2023-03-06] MEDS: Tamsulosin 0.4 MG Cap.ER PO ONE (09:56)
== END 2023-03-06 11:28 | disposition home or self-care (01) ==
LOC: VM.ED 09:02
DX: N20.0 Calculus of kidney (principal); E78.00 Pure hypercholesterolemia, unspecified; E11.9 Type 2 diabetes mellitus without complications; J44.9 Chronic obstructive pulmonary disease, unspecified; Z88.0 Allergy status to penicillin; Z88.8 Allergy status to other drugs, medicaments and biological substances; Z79.899 Other long term (current) drug therapy; Z79.84 Long term (current) use of oral hypoglycemic drugs
CPT/HCPCS: 80053; 83605; 83735; 85025; 96361; 96374; 96375; 99284; A9270; J1170; J1885; J2405; J7030

== ENCOUNTER 2023-03-09 10:27 | Emergency (ER) | payer MEDICARE, BC | END 2023-03-09 11:20 | disposition home or self-care (01) | LOC: VM.ED 10:27 | DX: R33.9 Retention of urine, unspecified (principal); E11.9 Type 2 diabetes mellitus without complications; J44.9 Chronic obstructive pulmonary disease, unspecified; E78.00 Pure hypercholesterolemia, unspecified; Z88.0 Allergy status to penicillin; Z88.8 Allergy status to other drugs, medicaments and biological substances; Z91.048 Other nonmedicinal substance allergy status | CPT/HCPCS: 51700; 99283 ==

== ENCOUNTER 2023-03-21 14:52 | Emergency (ER) | payer MEDICARE, BC | END 2023-03-21 16:06 | disposition home or self-care (01) | LOC: VM.ED 14:52 | DX: R33.9 Retention of urine, unspecified (principal); I25.10 Atherosclerotic heart disease of native coronary artery without angina pectoris; J44.9 Chronic obstructive pulmonary disease, unspecified; I10 Essential (primary) hypertension; E11.9 Type 2 diabetes mellitus without complications; Z88.0 Allergy status to penicillin; Z88.8 Allergy status to other drugs, medicaments and biological substances; Z79.82 Long term (current) use of aspirin; Z79.899 Other long term (current) drug therapy | CPT/HCPCS: 51702; 99283; 99284 ==

== ENCOUNTER 2023-06-05 04:30 | Emergency (ER) | payer MEDICARE, BC ==
[2023-06-05 05:21] LABS: BASOPHILS PERCENT AUTO 0.3 % (0.2-1.2); EOSINOPHILS ABSOLUTE AUTO 0.2 x10^3/uL (0.0-0.5); EOSINOPHILS PERCENT AUTO 2.9 % (0.0-4.0); HEMATOCRIT 39.9 % (40.0-52.0); HEMOGLOBIN 13.5 g/dL (14.0-18.0); IMMATURE GRAN ABSOLUTE AUTO 0.03 x10^3/uL (0.00-0.07); LYMPHOCYTES ABSOLUTE AUTO 1.4 x10^3/uL (1.0-4.8); LYMPHOCYTES PERCENT AUTO 18.9 % (25.0-50.0); MEAN CORPUSCULAR HEMOGLOBIN 30.8 pg (26.0-32.0); MEAN CORPUSCULAR HGB CONC 33.8 g/dL (32.0-36.0); MEAN CORPUSCULAR VOLUME 91.1 fL (78.0-93.0); MONOCYTES ABSOLUTE AUTO 0.6 x10^3/uL (0.0-0.8); MONOCYTES PERCENT AUTO 8.9 % (2.0-11.0); NEUTROPHILS ABSOLUTE AUTO 4.9 x10^3/uL (1.8-7.7); NEUTROPHILS PERCENT AUTO 68.6 % (50.0-80.0); PLATELET COUNT,PLT 99 x10^3/uL (130-400); RED BLOOD CELL COUNT 4.38 x10^6/uL (4.5-6.0); WHITE BLOOD CELL COUNT,WBC 7.2 x10^3/uL (4.0-10.0)
[2023-06-05 05:39] LABS: A/G RATIO 0.72; ALBUMIN 3.1 g/dL (3.4-5.0); BILIRUBIN TOTAL 1.2 mg/dL (0.2-1.0); C-REACTIVE PROTEIN 0.57 mg/dL (<=0.50); CREATININE 1.2 mg/dL (0.70-1.30); EST CRCL DRUG DOSING (CG) 54.52 mL/min; POTASSIUM,K 5.4 mmol/L (3.5-5.1); PROTEIN TOTAL,TP 7.4 g/dL (6.4-8.2)
[2023-06-05 05:42] LABS: ANION GAP 12.4 mmol/L (5-15)
[2023-06-05] MEDS ORDERED: Sodium Chloride 0.9% 1,000 ML IV ONE ×2 (05:45→06:16)
[2023-06-05] MEDS ORDERED: Iopamidol 755 Mg/ML 100 ML Bottle IVPUSH ONE (06:23)
== END 2023-06-05 10:21 | disposition home or self-care (01) ==
LOC: VM.ED 04:30
DX: M25.512 Pain in left shoulder (principal); R55 Syncope and collapse; I10 Essential (primary) hypertension; E78.00 Pure hypercholesterolemia, unspecified; I25.10 Atherosclerotic heart disease of native coronary artery without angina pectoris; J44.9 Chronic obstructive pulmonary disease, unspecified; E11.9 Type 2 diabetes mellitus without complications; Z87.891 Personal history of nicotine dependence; Z79.4 Long term (current) use of insulin; Z79.899 Other long term (current) drug therapy; Z88.8 Allergy status to other drugs, medicaments and biological substances
CPT/HCPCS: 36415; 70450; 74174; 80053; 84484; 85025; 85379; 86140; 93005; 96360; 96361; 99284-25; J7030; Q9967

== ENCOUNTER 2023-08-16 15:50 | Observation (INO) | payer MEDICARE, BC ==
[2023-08-16] MEDS ORDERED: Ondansetron 4 MG/2 ML SDV IV PRN (16:40)
[2023-08-16] MEDS ORDERED: Sodium Chloride 0.9% 10 ML Syringe FLUSH PRN (16:40)
[2023-08-16] MEDS ORDERED: Loratadine 10 MG Tab PO PRN (16:42)
[2023-08-16] MEDS ORDERED: Albuterol/Ipratropium 3.0-0.5 MG/3 ML Neb Soln INH PRN (16:42)
[2023-08-16] MEDS ORDERED: Glucagon,Human Recombinant 1 MG Vial IM PRN (16:43)
[2023-08-16] MEDS ORDERED: 50% Dextrose in Water 50 ML Syringe IVPUSH PRN (16:43)
[2023-08-16] MEDS ORDERED: Insulin Lispro 100 Units/ML 3 ML Vial SUBCUT PRN (16:43)
[2023-08-16] MEDS ORDERED: Lidocaine 4% 1 each Patch TOP PRN (16:44)
[2023-08-16] MEDS ORDERED: [UNRECOGNIZED DRUG - REMARK] PO PRN (17:12)
[2023-08-16] MEDS: Sodium Chloride 0.9% 1,000 ML IV SCH (17:32)
[2023-08-16] MEDS: metFORMIN 500 MG Tab PO SCH (17:38)
[2023-08-16] MEDS: Insulin Glarg,Human.Rec.Analog 100 Unit/ML 10 ML Vial SUBCUT SCH (17:40)
[2023-08-16] MEDS: Tamsulosin 0.4 MG Cap.ER PO SCH (20:19)
[2023-08-16] MEDS: Calcium Carbonate/Vitamin D3 1250 MG-5 MCG Tab PO SCH (20:19)
[2023-08-16] MEDS: Melatonin 3 MG Tab PO SCH (20:20)
[2023-08-16] MEDS: levETIRAcetam 500 MG Tab PO SCH (20:20)
[2023-08-16] MEDS: Latanoprost 0.005% Ophth Soln 2.5 ML Bottle EYEBOTH SCH (20:26)
[2023-08-17] MEDS: HYDROmorphone 0.5 MG/0.5 ML Syringe IVPUSH PRN (02:36)
[2023-08-17] MEDS ORDERED: HYDROCORTISONE 10 MG PO SCH (07:00)
[2023-08-17 08:23] LABS: BASOPHILS PERCENT AUTO 0.2 % (0.2-1.2); EOSINOPHILS ABSOLUTE AUTO 0.1 x10^3/uL (0.0-0.5); EOSINOPHILS PERCENT AUTO 1.5 % (0.0-4.0); HEMATOCRIT 35.8 % (40.0-52.0); IMMATURE GRAN ABSOLUTE AUTO 0.02 x10^3/uL (0.00-0.07); LYMPHOCYTES PERCENT AUTO 12.8 % (25.0-50.0); MEAN CORPUSCULAR HEMOGLOBIN 29.3 pg (26.0-32.0); MEAN CORPUSCULAR HGB CONC 33.5 g/dL (32.0-36.0); MEAN CORPUSCULAR VOLUME 87.5 fL (78.0-93.0); MONOCYTES ABSOLUTE AUTO 0.8 x10^3/uL (0.0-0.8); MONOCYTES PERCENT AUTO 9.3 % (2.0-11.0); NEUTROPHILS ABSOLUTE AUTO 6.2 x10^3/uL (1.8-7.7); PLATELET COUNT,PLT 102 x10^3/uL (130-400); RED BLOOD CELL COUNT 4.09 x10^6/uL (4.5-6.0); WHITE BLOOD CELL COUNT,WBC 8.1 x10^3/uL (4.0-10.0)
[2023-08-17 08:37] LABS: INR 1.1 (0.9-1.1); PROTHROMBIN TIME 11.8 SEC (9.5-12.2)
[2023-08-17] MEDS: Cholecalciferol (Vitamin D3) 25 MCG Tab PO SCH (08:45)
[2023-08-17] MEDS: Sodium Chloride 1 GM Tab PO SCH (08:45)
[2023-08-17 08:48] LABS: A/G RATIO 0.54; ALBUMIN 2.5 g/dL (3.4-5.0); BILIRUBIN TOTAL 2.5 mg/dL (0.2-1.0); CALCIUM 8.6 mg/dL (8.5-10.1); EST CRCL DRUG DOSING (CG) 66.69 mL/min; POTASSIUM,K 4.4 mmol/L (3.5-5.1); PROTEIN TOTAL,TP 7.1 g/dL (6.4-8.2)
[2023-08-17 08:50] LABS: ANION GAP 14.4 mmol/L (5-15)
== END 2023-08-17 11:20 | disposition home or self-care (01) ==
LOC: VM.MS 15:50
PROVIDERS: ADMIT Internal Medicine; ATTEND Internal Medicine
DX: R10.11 Right upper quadrant pain (principal); K83.01 Primary sclerosing cholangitis; K74.60 Unspecified cirrhosis of liver; K76.6 Portal hypertension; K51.90 Ulcerative colitis, unspecified, without complications; E11.65 Type 2 diabetes mellitus with hyperglycemia; J44.9 Chronic obstructive pulmonary disease, unspecified; L29.9 Pruritus, unspecified; I25.10 Atherosclerotic heart disease of native coronary artery without angina pectoris; N20.0 Calculus of kidney; N40.0 Benign prostatic hyperplasia without lower urinary tract symptoms; C43.9 Malignant melanoma of skin, unspecified; Z79.899 Other long term (current) drug therapy; Z98.890 Other specified postprocedural states; Z88.8 Allergy status to other drugs, medicaments and biological substances; Z88.1 Allergy status to other antibiotic agents; Z88.9 Allergy status to unspecified drugs, medicaments and biological substances; Z88.0 Allergy status to penicillin
CPT/HCPCS: 36415; 71046; 80053; 82248; 82947; 85025; 85610; 96361; 96374; A9270; G0378; J1170; J1815; J7030

== ENCOUNTER 2023-12-25 15:31 | Emergency (ER) | payer MEDICARE, BC | END 2023-12-25 16:16 | disposition home or self-care (01) | LOC: VM.ED 15:31 → SUPCPDRO 15:31 → VM.ED 16:16 | DX: K94.11 Enterostomy hemorrhage (principal); E78.00 Pure hypercholesterolemia, unspecified; I25.10 Atherosclerotic heart disease of native coronary artery without angina pectoris; E11.9 Type 2 diabetes mellitus without complications; Z88.8 Allergy status to other drugs, medicaments and biological substances; Z88.0 Allergy status to penicillin; Z88.6 Allergy status to analgesic agent; Z79.51 Long term (current) use of inhaled steroids; Z79.899 Other long term (current) drug therapy; Z79.4 Long term (current) use of insulin; Z95.5 Presence of coronary angioplasty implant and graft; Z95.1 Presence of aortocoronary bypass graft | CPT/HCPCS: 99282 ==

== ENCOUNTER 2024-06-24 14:31 | Emergency (ER) | payer MEDICARE, BC ==
[2024-06-24] MEDS: Lactated Ringers 1,000 ML IV ONE (15:15)
[2024-06-24 15:36] LABS: BASOPHILS PERCENT AUTO 0.4 % (0.2-1.2); EOSINOPHILS ABSOLUTE AUTO 0.4 x10^3/uL (0.0-0.5); EOSINOPHILS PERCENT AUTO 5.4 % (0.0-4.0); HEMATOCRIT 31.7 % (40.0-52.0); HEMOGLOBIN 10.9 g/dL (14.0-18.0); IMMATURE GRAN ABSOLUTE AUTO 0.02 x10^3/uL (0.00-0.07); LYMPHOCYTES PERCENT AUTO 13.2 % (25.0-50.0); MEAN CORPUSCULAR HEMOGLOBIN 29.7 pg (26.0-32.0); MEAN CORPUSCULAR HGB CONC 34.4 g/dL (32.0-36.0); MEAN CORPUSCULAR VOLUME 86.4 fL (78.0-93.0); MONOCYTES ABSOLUTE AUTO 0.6 x10^3/uL (0.0-0.8); MONOCYTES PERCENT AUTO 7.7 % (2.0-11.0); NEUTROPHILS ABSOLUTE AUTO 5.6 x10^3/uL (1.8-7.7); PLATELET COUNT,PLT 95 x10^3/uL (130-400); RED BLOOD CELL COUNT 3.67 x10^6/uL (4.5-6.0); WHITE BLOOD CELL COUNT,WBC 7.6 x10^3/uL (4.0-10.0)
== END 2024-06-24 15:45 | disposition short-term general hospital (02) ==
LOC: VM.ED 14:31
DX: K94.01 Colostomy hemorrhage (principal); I25.10 Atherosclerotic heart disease of native coronary artery without angina pectoris; E78.00 Pure hypercholesterolemia, unspecified; J44.9 Chronic obstructive pulmonary disease, unspecified; E11.9 Type 2 diabetes mellitus without complications; Z95.1 Presence of aortocoronary bypass graft; Z79.899 Other long term (current) drug therapy; Z79.84 Long term (current) use of oral hypoglycemic drugs; Z79.891 Long term (current) use of opiate analgesic; Z88.0 Allergy status to penicillin; Z88.8 Allergy status to other drugs, medicaments and biological substances
CPT/HCPCS: 85025; 99284; J7120; 36415

== ENCOUNTER 2024-06-24 22:50 | Observation (INO) | payer MEDICARE, BC ==
[2024-06-24] MEDS: Lactated Ringers 1,000 ML IV ONE (22:50)
[2024-06-24 23:02] LABS: BASOPHILS PERCENT AUTO 0.5 % (0.2-1.2); EOSINOPHILS ABSOLUTE AUTO 0.6 x10^3/uL (0.0-0.5); EOSINOPHILS PERCENT AUTO 7.4 % (0.0-4.0); HEMATOCRIT 27.2 % (40.0-52.0); HEMOGLOBIN 9.4 g/dL (14.0-18.0); IMMATURE GRAN ABSOLUTE AUTO 0.03 x10^3/uL (0.00-0.07); LYMPHOCYTES ABSOLUTE AUTO 1.8 x10^3/uL (1.0-4.8); LYMPHOCYTES PERCENT AUTO 23.6 % (25.0-50.0); MEAN CORPUSCULAR HEMOGLOBIN 30.5 pg (26.0-32.0); MEAN CORPUSCULAR HGB CONC 34.6 g/dL (32.0-36.0); MEAN CORPUSCULAR VOLUME 88.3 fL (78.0-93.0); MONOCYTES ABSOLUTE AUTO 0.7 x10^3/uL (0.0-0.8); MONOCYTES PERCENT AUTO 8.8 % (2.0-11.0); NEUTROPHILS ABSOLUTE AUTO 4.6 x10^3/uL (1.8-7.7); NEUTROPHILS PERCENT AUTO 59.3 % (50.0-80.0); PLATELET COUNT,PLT 102 x10^3/uL (130-400); RED BLOOD CELL COUNT 3.08 x10^6/uL (4.5-6.0); WHITE BLOOD CELL COUNT,WBC 7.7 x10^3/uL (4.0-10.0)
[2024-06-24] MEDS: Sodium Chloride 0.9% 1,000 ML IV ONE (23:05)
[2024-06-24 23:23] LABS: A/G RATIO 0.64; ALANINE AMINOTRANSFERASE,ALT 105 U/L (16-63); ALBUMIN 2.1 g/dL (3.4-5.0); ALKALINE PHOSPHATASE 601 U/L (46-116); ASPARTATE AMNIOTRANSFERASE,AST 106 U/L (15-37); BILIRUBIN TOTAL 1.3 mg/dL (0.2-1.0); BLOOD UREA NITROGEN,BUN 18 mg/dL (7-18); CALCIUM 8.2 mg/dL (8.5-10.1); CARBON DIOXIDE,CO2 18 mmol/L (21-32); CHLORIDE,CL 108 mmol/L (98-107); CREATININE 1.2 mg/dL (0.70-1.30); GLUCOSE RANDOM 138 mg/dL (70-99); POTASSIUM,K 4.3 mmol/L (3.5-5.1); PROTEIN TOTAL,TP 5.4 g/dL (6.4-8.2); SODIUM,NA 139 mmol/L (136-145)
[2024-06-24 23:26] LABS: ANION GAP 17.3 mmol/L (5-15); ESTIMATED GFR 63 mL/min (>=60)
[2024-06-25] MEDS: Lactated Ringers 1,000 ML IV SCH (02:00)
[2024-06-25] MEDS: Latanoprost 0.005% Ophth Soln 2.5 ML Bottle EYEBOTH SCH (02:46)
[2024-06-25] MEDS: levETIRAcetam 500 MG Tab PO ONE (02:46)
[2024-06-25] MEDS: Sodium Chloride 1 GM Tab PO SCH (08:49)
[2024-06-25] MEDS: metFORMIN 500 MG Tab PO SCH (08:49)
[2024-06-25] MEDS: Tamsulosin 0.4 MG Cap.ER PO SCH (08:49)
[2024-06-25] MEDS ORDERED: Sodium Chloride 1 GM Tab PO SCH (09:00)
[2024-06-25] MEDS ORDERED: Rosuvastatin 20 MG Tab PO SCH (21:00)
[2024-06-25] MEDS ORDERED: Latanoprost 0.005% Ophth Soln 2.5 ML Bottle EYEBOTH SCH (21:00)
== END 2024-06-25 19:46 | disposition short-term general hospital (02) ==
LOC: VM.ED 22:50 → VM.MS 06-25 00:10
PROVIDERS: ADMIT Nurse Practitioner Family; ATTEND Internal Medicine
DX: D62 Acute posthemorrhagic anemia (principal); E86.1 Hypovolemia; I95.9 Hypotension, unspecified; E11.9 Type 2 diabetes mellitus without complications; J44.9 Chronic obstructive pulmonary disease, unspecified; E78.00 Pure hypercholesterolemia, unspecified; I25.10 Atherosclerotic heart disease of native coronary artery without angina pectoris; Z95.1 Presence of aortocoronary bypass graft; Z79.4 Long term (current) use of insulin; Z79.84 Long term (current) use of oral hypoglycemic drugs; Z79.899 Other long term (current) drug therapy; Z88.0 Allergy status to penicillin; Z88.8 Allergy status to other drugs, medicaments and biological substances
CPT/HCPCS: 36415; 80053; 82947; 85018; 85025; 86850; 86900; 86901; 96360; 96361; 99285; A9270; G0378; J7030; J7120; 99236